=== PATIENT | male | born 1980 | race Caucasian/White ===

== ENCOUNTER 2018-08-12 15:04 | Emergency (ER) | payer BC ==
[~2018-08-12] VITALS: Ht 182.9 cm; Wt 122.9 kg
[~2018-08-12 15:04] MED LIST: BACTRIM DS TAB1 EACH PO; CELEXA 10 MG TA10 M1; ESKALITH300 MG; GLUCOPHAGE500 MG; NORCO 5-325 TA1 EACH PO; SIMVASTATIN10 MG PO
[2018-08-12 15:34] LABS: ABSOLUTE NEUTROPHILS 10.3 thou/uL (1.4-8.2); BASOPHILS 0.5 % (0.0-2.0); EOSINOPHILS 1.6 % (0.0-3.0); HEMATOCRIT 46.4 % (42.0-52.0); HEMOGLOBIN 15.9 gm/dL (14.0-18.0); LYMPHOCYTES 21.5 % (24.0-44.0); MCH 29.8 pg (26.0-34.0); MCHC 34.3 g/dL (28.0-37.0); MCV 86.9 fL (80.0-100.0); MONOCYTES 5.1 % (1.0-8.0); PLATELET COUNT 322 thou/uL (150-400); POLYS 71.3 % (36.0-66.0); RBC 5.34 mil/uL (4.50-6.00); RDW 13.4 % (10.5-14.5); WBC 14.4 thou/uL (4.0-11.0)
[2018-08-12 15:39] LABS: CALCIUM 10.5 mg/dL (8.5-10.1); CREATININE 0.9 mg/dL (0.7-1.3); POTASSIUM 4.1 mmol/L (3.5-5.1)
[2018-08-12] MEDS ORDERED: BACTRIM DS TAB1 EACH PO (16:08)
[2018-08-12 16:48] VITALS: BP 130/91
== END 2018-08-12 16:54 | disposition home or self-care (01) ==
LOC: ER 15:04
PROVIDERS: Student in an Organized Health Care Education/Training Program
DX: L03.031 Cellulitis of right toe (principal); E11.9 Type 2 diabetes mellitus without complications

== ENCOUNTER → 2018-08-31 | Outpatient (CLI) | payer BC | LOC: HYPER 08-25 06:46 | DX: E11.621 Type 2 diabetes mellitus with foot ulcer (principal); L97.512 Non-pressure chronic ulcer of other part of right foot with fat layer exposed; S80.212A Abrasion, left knee, initial encounter; S80.211A Abrasion, right knee, initial encounter; L84 Corns and callosities; E78.5 Hyperlipidemia, unspecified; E66.9 Obesity, unspecified; I10 Essential (primary) hypertension; Z79.84 Long term (current) use of oral hypoglycemic drugs; Z79.4 Long term (current) use of insulin; Z68.36 Body mass index [BMI] 36.0-36.9, adult; X58.XXXA Exposure to other specified factors, initial encounter; Y93.89 Activity, other specified; Y92.89 Other specified places as the place of occurrence of the external cause; Y99.8 Other external cause status ==

== ENCOUNTER → 2018-09-28 | Outpatient (CLI) | payer BC | LOC: HYPER 06:48 | DX: E11.621 Type 2 diabetes mellitus with foot ulcer (principal); L97.512 Non-pressure chronic ulcer of other part of right foot with fat layer exposed; E78.5 Hyperlipidemia, unspecified; I10 Essential (primary) hypertension; L84 Corns and callosities; E66.9 Obesity, unspecified; Z79.84 Long term (current) use of oral hypoglycemic drugs; Z79.4 Long term (current) use of insulin; Z68.36 Body mass index [BMI] 36.0-36.9, adult ==

== ENCOUNTER → 2018-10-19 | Outpatient (CLI) | payer BC | LOC: HYPER 06:41 | DX: E11.621 Type 2 diabetes mellitus with foot ulcer (principal); L97.512 Non-pressure chronic ulcer of other part of right foot with fat layer exposed; E66.9 Obesity, unspecified; E78.5 Hyperlipidemia, unspecified; I10 Essential (primary) hypertension; Z79.84 Long term (current) use of oral hypoglycemic drugs; Z79.4 Long term (current) use of insulin; Z68.36 Body mass index [BMI] 36.0-36.9, adult ==

== ENCOUNTER → 2018-11-13 | Outpatient (CLI) | payer BC | LOC: HYPER 08:27 | DX: E11.621 Type 2 diabetes mellitus with foot ulcer (principal); L97.512 Non-pressure chronic ulcer of other part of right foot with fat layer exposed; L97.511 Non-pressure chronic ulcer of other part of right foot limited to breakdown of skin; E78.5 Hyperlipidemia, unspecified; I10 Essential (primary) hypertension; L84 Corns and callosities; E66.9 Obesity, unspecified; Z79.84 Long term (current) use of oral hypoglycemic drugs; Z79.4 Long term (current) use of insulin; Z68.36 Body mass index [BMI] 36.0-36.9, adult ==

== ENCOUNTER → 2018-11-27 | Outpatient (CLI) | payer BC | LOC: HYPER 08:09 | DX: E11.621 Type 2 diabetes mellitus with foot ulcer (principal); L97.512 Non-pressure chronic ulcer of other part of right foot with fat layer exposed; L97.511 Non-pressure chronic ulcer of other part of right foot limited to breakdown of skin; S41.1 Open wound of upper arm; S81.802D Unspecified open wound, left lower leg, subsequent encounter; S81.801D Unspecified open wound, right lower leg, subsequent encounter; I10 Essential (primary) hypertension; E78.5 Hyperlipidemia, unspecified; E66.9 Obesity, unspecified; L84 Corns and callosities; Z79.84 Long term (current) use of oral hypoglycemic drugs; Z79.4 Long term (current) use of insulin; Z68.36 Body mass index [BMI] 36.0-36.9, adult; X58.XXXD Exposure to other specified factors, subsequent encounter ==

== ENCOUNTER → 2018-12-23 | Outpatient (CLI) | payer BC | LOC: HYPER 06:25 | DX: E11.621 Type 2 diabetes mellitus with foot ulcer (principal); L97.512 Non-pressure chronic ulcer of other part of right foot with fat layer exposed; L97.511 Non-pressure chronic ulcer of other part of right foot limited to breakdown of skin; L84 Corns and callosities; E78.5 Hyperlipidemia, unspecified; E66.9 Obesity, unspecified; I10 Essential (primary) hypertension; Z79.84 Long term (current) use of oral hypoglycemic drugs; Z79.4 Long term (current) use of insulin ==

== ENCOUNTER → 2018-12-25 | Outpatient (CLI) | payer BC | LOC: HYPER 07:03 | DX: E11.621 Type 2 diabetes mellitus with foot ulcer (principal); L97.512 Non-pressure chronic ulcer of other part of right foot with fat layer exposed; I10 Essential (primary) hypertension; E78.5 Hyperlipidemia, unspecified; E66.9 Obesity, unspecified; L84 Corns and callosities; Z68.36 Body mass index [BMI] 36.0-36.9, adult; Z79.84 Long term (current) use of oral hypoglycemic drugs; Z79.4 Long term (current) use of insulin ==

== ENCOUNTER → 2018-12-28 | Outpatient (CLI) | payer BC | LOC: HYPER 08:00 | DX: E11.621 Type 2 diabetes mellitus with foot ulcer (principal); L97.512 Non-pressure chronic ulcer of other part of right foot with fat layer exposed; L97.521 Non-pressure chronic ulcer of other part of left foot limited to breakdown of skin; E78.5 Hyperlipidemia, unspecified; I10 Essential (primary) hypertension; L84 Corns and callosities; E66.9 Obesity, unspecified; Z79.84 Long term (current) use of oral hypoglycemic drugs; Z79.4 Long term (current) use of insulin; Z68.36 Body mass index [BMI] 36.0-36.9, adult ==

== ENCOUNTER → 2019-01-04 | Outpatient (CLI) | payer BC | LOC: HYPER 01-01 11:32 | DX: E11.621 Type 2 diabetes mellitus with foot ulcer (principal); L97.512 Non-pressure chronic ulcer of other part of right foot with fat layer exposed; L97.521 Non-pressure chronic ulcer of other part of left foot limited to breakdown of skin; E78.5 Hyperlipidemia, unspecified; L84 Corns and callosities; I10 Essential (primary) hypertension; E66.9 Obesity, unspecified; Z79.84 Long term (current) use of oral hypoglycemic drugs; Z79.4 Long term (current) use of insulin; Z68.36 Body mass index [BMI] 36.0-36.9, adult ==

== ENCOUNTER → 2019-01-11 | Outpatient (CLI) | payer BC | LOC: HYPER 01-08 07:40 | DX: E11.621 Type 2 diabetes mellitus with foot ulcer (principal); L97.512 Non-pressure chronic ulcer of other part of right foot with fat layer exposed; L97.521 Non-pressure chronic ulcer of other part of left foot limited to breakdown of skin; I10 Essential (primary) hypertension; E78.5 Hyperlipidemia, unspecified; L84 Corns and callosities; E66.9 Obesity, unspecified; Z79.84 Long term (current) use of oral hypoglycemic drugs; Z79.4 Long term (current) use of insulin; Z68.36 Body mass index [BMI] 36.0-36.9, adult ==

== ENCOUNTER → 2019-01-18 | Outpatient (CLI) | payer BC | LOC: HYPER 06:50 | DX: E11.621 Type 2 diabetes mellitus with foot ulcer (principal); L97.512 Non-pressure chronic ulcer of other part of right foot with fat layer exposed; L97.521 Non-pressure chronic ulcer of other part of left foot limited to breakdown of skin; E78.5 Hyperlipidemia, unspecified; E66.9 Obesity, unspecified; I10 Essential (primary) hypertension; L84 Corns and callosities; Z68.36 Body mass index [BMI] 36.0-36.9, adult; Z79.84 Long term (current) use of oral hypoglycemic drugs; Z79.4 Long term (current) use of insulin ==

== ENCOUNTER → 2019-01-25 | Outpatient (CLI) | payer BC | LOC: HYPER 06:54 | DX: E11.621 Type 2 diabetes mellitus with foot ulcer (principal); L97.512 Non-pressure chronic ulcer of other part of right foot with fat layer exposed; L97.521 Non-pressure chronic ulcer of other part of left foot limited to breakdown of skin; I10 Essential (primary) hypertension; E78.5 Hyperlipidemia, unspecified; E66.9 Obesity, unspecified; L84 Corns and callosities; Z68.36 Body mass index [BMI] 36.0-36.9, adult; Z79.84 Long term (current) use of oral hypoglycemic drugs; Z79.4 Long term (current) use of insulin ==

== ENCOUNTER → 2019-02-02 | Outpatient (CLI) | payer BC | LOC: HYPER 02-01 13:12 | DX: E11.621 Type 2 diabetes mellitus with foot ulcer (principal); L97.512 Non-pressure chronic ulcer of other part of right foot with fat layer exposed; L97.521 Non-pressure chronic ulcer of other part of left foot limited to breakdown of skin; E78.5 Hyperlipidemia, unspecified; L84 Corns and callosities; I10 Essential (primary) hypertension; E66.9 Obesity, unspecified; Z79.84 Long term (current) use of oral hypoglycemic drugs; Z79.4 Long term (current) use of insulin; Z68.36 Body mass index [BMI] 36.0-36.9, adult ==

== ENCOUNTER → 2019-02-11 | Outpatient (CLI) | payer BC | LOC: HYPER 02-08 15:44 | DX: E11.621 Type 2 diabetes mellitus with foot ulcer (principal); L97.512 Non-pressure chronic ulcer of other part of right foot with fat layer exposed; L97.521 Non-pressure chronic ulcer of other part of left foot limited to breakdown of skin; E78.5 Hyperlipidemia, unspecified; I10 Essential (primary) hypertension; L84 Corns and callosities; E66.9 Obesity, unspecified; Z79.84 Long term (current) use of oral hypoglycemic drugs; Z79.4 Long term (current) use of insulin; Z68.36 Body mass index [BMI] 36.0-36.9, adult ==

== ENCOUNTER → 2019-02-25 | Outpatient (CLI) | payer BC | LOC: HYPER 06:45 | DX: E11.621 Type 2 diabetes mellitus with foot ulcer (principal); L97.512 Non-pressure chronic ulcer of other part of right foot with fat layer exposed; L97.521 Non-pressure chronic ulcer of other part of left foot limited to breakdown of skin; E78.5 Hyperlipidemia, unspecified; I10 Essential (primary) hypertension; E66.9 Obesity, unspecified; L84 Corns and callosities; Z79.84 Long term (current) use of oral hypoglycemic drugs; Z79.4 Long term (current) use of insulin; Z68.36 Body mass index [BMI] 36.0-36.9, adult ==

== ENCOUNTER 2019-03-07 21:12 | Inpatient (IN) | payer BC ==
[~2019-03-07] VITALS: Ht 182.9 cm; Wt 131.5 kg
[~2019-03-07 21:12] MED LIST changes: -ESKALITH300 MG; +ESKALITH300 MG PO
[2019-03-07 21:16] VITALS: BP 170/87
[2019-03-07] MEDS ORDERED: VENLAFAXINE HC150 M1 PO ×2 (21:39)
[2019-03-07] MEDS ORDERED: PRINIVIL20 MG PO ×2 (21:39)
[2019-03-07] MEDS ORDERED: PENICILLIN V P500 MG PO ×2 (21:39)
[2019-03-07] MEDS ORDERED: GLUCOPHAGE XR750 MG PO ×2 (21:40)
[2019-03-07] MEDS ORDERED: LIPITOR10 MG PO ×2 (21:41)
[2019-03-07] MEDS ORDERED: CLEOCIN HCL300 MG PO ×2 (21:44)
[2019-03-07] MEDS ORDERED: WELLBUTRIN XL150 MG PO (21:44)
[2019-03-07 21:53] LABS: ABSOLUTE NEUTROPHILS 10.7 thou/uL (1.4-8.2); BASOPHILS 0.2 % (0.0-2.0); EOSINOPHILS 1.1 % (0.0-3.0); HEMATOCRIT 30.4 % (42.0-52.0); HEMOGLOBIN 10.5 gm/dL (14.0-18.0); LYMPHOCYTES 14.1 % (24.0-44.0); MCH 30.1 pg (26.0-34.0); MCHC 34.7 g/dL (28.0-37.0); MCV 86.7 fL (80.0-100.0); MONOCYTES 4.8 % (1.0-8.0); PLATELET COUNT 279 thou/uL (150-400); POLYS 79.8 % (36.0-66.0); RBC 3.51 mil/uL (4.50-6.00); RDW 13.8 % (10.5-14.5); WBC 13.4 thou/uL (4.0-11.0)
[2019-03-07 21:59] LABS: ANION GAP 9 mmol/L (7-16); BUN 7 mg/dL (7-18); CALCIUM 8.5 mg/dL (8.5-10.1); CHLORIDE 99 mmol/L (98-107); CO2 26 mmol/L (21-32); GLUCOSE 252 mg/dL (74-106); POTASSIUM 3.4 mmol/L (3.5-5.1); SODIUM 134 mmol/L (136-145)
[2019-03-07 22:06] LABS: APTT 32.2 Seconds (24.5-32.8); INR 1.1; PROTIME 11.1 Seconds (9.3-11.4)
[2019-03-07 22:08] LABS: ALBUMIN 2.7 g/dL (3.4-5.0); MAGNESIUM 2.1 mg/dL (1.8-2.4); SGOT 19 U/L (15-37); SGPT 26 U/L (30-65); TOTAL BILIRUBIN 0.5 mg/dL (<0.1-1.0); TOTAL PROTEIN 7.5 g/dL (6.4-8.2); TROPONIN-I <0.06 ng/mL (<0.06)
[2019-03-07 22:50] LABS: BE(vivo) -1.7 mmol/L (-2 to +3); HCO3 21.5 mmol/L (22.0-26.0); PCO2 31.4 mmHg (35.0-45.0); PO2 70.3 mmHg (80.0-100.0); pH 7.454 (7.360-7.450); sO2 95.1 % (92.0-98.0)
[2019-03-07] MEDS ORDERED: HUMALOG100 UNIT/1 ×2 (22:52)
[2019-03-07] MEDS ORDERED: TRULICITY1.5 MG/0.5 SUBQ ×2 (22:53)
[2019-03-07] MEDS ORDERED: LEVEMIR100 UNIT/1 SUBQ ×2 (22:54)
[2019-03-07 23:39] VITALS: BP 133/75
[2019-03-07 23:44] LABS: URINE BILIRUBIN NEGATIVE (Negative); URINE BLOOD NEGATIVE (Negative); URINE CLARITY CLEAR; URINE COLOR YELLOW; URINE GLUCOSE-RANDOM* TRACE (Negative); URINE KETONES NEGATIVE (Negative); URINE LEUKOCYTES-REFLEX TRACE (Negative); URINE NITRITE-REFLEX NEGATIVE (Negative); URINE PROTEIN (DIPSTICK) NEGATIVE (Negative); URINE SPECIFIC GRAVITY <= 1.005 (1.005-1.035); URINE UROBILINOGEN 0.2 E.U./dl (0.2-1.0)
[2019-03-07 23:57] VITALS: BP 148/80
[2019-03-08] MEDS ORDERED: ASPIR 8181 MG PO ×2 (01:21)
[2019-03-08] MEDS ORDERED: MULTILIQ120 PO ×2 (01:22)
[2019-03-08] MEDS ORDERED: MUCINEX600 MG PO ×2 (01:23)
--- NOTE | 2019-03-08 04:37 | NUR ---
PT. ARRIVED AROUND 2340; PT. AOX4; ABLE TO AMBULATE FROM STRETCHER TO BED; SOB WITH EXERTION; C/O PAIN OVER CHEST AREA; 08/23; REFUSED PRN PAIN MEDICATION; ADMISSION PERFORMED; SAT 88% ON RA; EDUCATED ABOUT USING O2 WHILE SLEEPING; ST. UNDERSTANDING; NO ELEVATED TEMPERATURE AT ARRIVAL; SYNUS RYRAKESHM ON MONITOR; VS; MONITORING; MEDICATION RECONCILIATION PERFORMED; PICTURES TAKEN; CHECK CHART; ABLE TO REST AFTER 0100; MONITORING; ASSESSMENT CHART; FOLLOWING POC; WILL PASS ON REPORT.
[2019-03-08 04:58] VITALS: BP 128/66
[2019-03-08 07:19] VITALS: BP 137/80
--- NOTE | 2019-03-08 08:44 | EKG ---
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
--- NOTE | 2019-03-08 10:25 | 2DMMODE ---
[facility] [place] [address] 2 D/M-MODE ECHOCARDIOGRAM Name: LAURA MEMBRENO Room #: 211-P [facility] IN [facility]#: [id number] Admission: 03/07/19 Attend Phys: Bertha Cosme, Discharge: Date of : 76 Report #: [id number] THIS REPORT FOR: //name// APPROVED REPORT Study performed: 03/08/2019 09:25:52 EXAM: Comprehensive 2D, Doppler, and color-flow Echocardiogram Patient Location: Echo lab Status: routine BSA: 2.55 HR: 94 bpm BP: 137/80 mmHg Rhythm: NSR Other Information Study Quality: Adequate Indications Diabetes Dyspnea Hypertension/HDD Echo Enhancing Agent Indication: Endocardial border delineation Agent(s) / Amount(s) Used: Optison 3 cc 2D Dimensions RVDd: 41.32 mm IVSd: 13.38 (7-11mm) LVOT Diam: 23.14 (18-24mm) LVDd: 47.04 mm PWd: 13.05 (7-11mm) Ascending Ao: 35.57 (22-36mm) LVDs: 33.53 (25-40mm) Aortic Root: 29.34 mm IVC: 12.00 mm Volumes Left Atrial Volume (Systole) Single Plane 4CH: 87.05 mL Single Plane 2CH: 65.13 mL LA ESV Index: 37.00 mL/m2 Aortic Valve AoV Peak Errol.: 1.29 m/s AO Peak Gr.: 6.70 mmHg LVOT Max P.25 mmHg LVOT Max V: 1.25 m/s [facility] [address] [place] [address] 2 D/M-MODE ECHOCARDIOGRAM Name: LAURA MEMBRENO Room #: 211-P [facility]#: [id number] Admission: 03/07/19 Attend Phys: Bertha Cosme, Discharge: Date of : 76 Report #: [id number] [id number] Vmax: 4.06 cm2 Mitral Valve E/A Ratio: 1.5 MV Decel. Time: 145.90 ms MV E Max Errol.: 1.30 m/s MV A Errol.: 0.85 m/s MV PHT: 42.31 ms IVRT: 55.36 ms Pulmonary Valve PV Peak Errol.: 1.23 m/s PV Peak Gr.: 6.05 mmHg Pulmonary Vein P Vein S: 0.77 m/s P Vein A: 0.38 m/s P Vein D: 0.64 m/s P Vein A Dur.: 76.1 msec P Vein S/D Ratio: 1.20 Left Ventricle The left ventricle is normal size. There is normal LV segmental wall motion. Mild concentric left ventricular hypertrophy. The left ventricular systolic function is normal. The left ventricular ejection fraction is within the normal range. LVEF is 55-60%. The left ventricular diastolic function is normal. Right Ventricle The right ventricle is normal size. The right ventricular systolic function is normal. Atria Left atrium is mildly dilated. Right atrium is at the upper limits of normal. Aortic Valve The aortic valve is normal in structure. No aortic regurgitation is present. There is no aortic valvular stenosis. Mitral Valve The mitral valve is normal in structure. There is no mitral valve regurgitation noted. No evidence of mitral valve stenosis. Tricuspid Valve The tricuspid valve is normal in structure. There is no tricuspid valve regurgitation noted. Pulmonic Valve [facility] [address] [place] [address] 2 D/M-MODE ECHOCARDIOGRAM Name: LAURA MEMBRENO Ryan Room #: 211-P [facility].#: [id number] Admission: 03/07/19 Attend Phys: Bertha Cosme, Discharge: Date of : 76 Report #: [id number] The pulmonary valve is normal in structure. There is no pulmonic valvular regurgitation. Great Vessels The aortic root is normal in size. IVC is normal in size and collapses >50% with inspiration. Pericardium There is no pericardial effusion. <Conclusion> The left ventricle is normal size. Mild concentric left ventricular hypertrophy. The left ventricular systolic function is normal. The right ventricle is normal size. Left atrium is dilated. Left atrium is mildly dilated. The aortic valve is normal in structure. There is no mitral valve regurgitation noted. There is no tricuspid valve regurgitation noted. <ELECTRONICALLY SIGNED> By: Christiano Dockery MD 03/08/19 1025 1025 1025 Christiano Dockery MD /INF
[2019-03-08 11:34] VITALS: BP 147/79
[2019-03-08 15:43] VITALS: BP 136/73
--- NOTE | 2019-03-08 17:16 | NUR ---
ASSUMED CARE AT SHIFT CHANGE, ALERT AND ORIENTED X4. C/O HEADACHE AND MEDICATED INDICATED. LOW GRADE FEVER AT 100.3, AND OTHER VSS.SR ON THE MONITOR. PROGRESSING TOWARDS GOALS AND WILL CONTINU WITH POC.
[2019-03-08 20:30] VITALS: BP 142/76
--- NOTE | 2019-03-09 03:46 | NUR ---
ASSESSMENT DOCUMENTED.PT BEEN RESTING IN NO ACUTE DISTRESS.A/OX4.VSS.ON O2 AT 3LITERS PNC,NO RESP DISTRESS.TOLERATED SHOWER.CONTINUES WITH ABT THERAPY,PHARMACIST ADJUSTED VANCOMYCIN D/T TROUGH BEING LOW AT 11.VANCO ADMINISTERED,TOLERATED.WOUND TREATMENT TO RIGHT BIG TOE AND THE 4 TH LEFT TOE COMPLETED PER ORDERS.TOLERATED.PT DENIES ANY NEEDS AT THIS TIME. WILL CONT TO MONITOR PER POC
[2019-03-09 05:27] LABS: HEMATOCRIT 29.3 % (42.0-52.0); HEMOGLOBIN 9.7 gm/dL (14.0-18.0); MCH 29.4 pg (26.0-34.0); MCHC 33.3 g/dL (28.0-37.0); MCV 88.4 fL (80.0-100.0); RBC 3.31 mil/uL (4.50-6.00); RDW 13.8 % (10.5-14.5); WBC 11.6 thou/uL (4.0-11.0)
[2019-03-09 05:43] LABS: CALCIUM 8.4 mg/dL (8.5-10.1); CREATININE 0.9 mg/dL (0.7-1.3); MAGNESIUM 2.3 mg/dL (1.8-2.4); PHOSPHORUS 4.1 mg/dL (2.5-4.9); POTASSIUM 3.4 mmol/L (3.5-5.1)
[2019-03-09 06:12] VITALS: BP 145/86
[2019-03-09 08:00] VITALS: BP 135/79
--- NOTE | 2019-03-09 08:09 | NUR ---
ASSUMED CARE OF PT APPROX 0715, A&0X4, DR. KELLEY WAS SPEAKING TO PT RE: HIGH BG AND ASKED NURSING TO INCREASE HIS INSULIN PER HOME DOSE. HE HAD A LIST WILL CALL PHARMACY TO ASK FOR THAT ORDER AND ENTER IT APPROPRIATE WHEN GIVEN THE OPPORTUNITY. WOUNDS BLE, WILL ADDRESS W/DRESSING CHANGES, IVF RUNNING WELL 02 AT 2L, DOES NOT WEAR AT HOME. ENCOURAGED PT TO DO DEEP SLOW BREATHING. HAVING SNACK THIS A.M. BEFORE BREAKFAST, CARDIAC MONITORED, SEE SEPARATE INTERVENTIONS FOR ASSESSMENTS. WILL CONTINUE TO MONITOR AND ENCOURAGED PT TO USE CALL LIGHT FOR ANY NEEDS
[2019-03-09] MEDS ORDERED: WELLBUTRIN SR150 MG PO ×2 (10:02)
[2019-03-09 11:23] VITALS: BP 153/77
[2019-03-09 16:30] VITALS: BP 156/78
--- NOTE | 2019-03-09 16:54 | HC ---
[facility] [place] [address] CONSULTATION Name: LAURA MEMBRENO Room #: 211-P [facility] IN ..#: [id number] Admission: 03/07/19 Attend Phys: Bertha Cosme MD Discharge: Date of : 76 Report #: [id number] THIS REPORT FOR: //name// CC: Bertha Vickers DATE OF SERVICE: 03/08/2019 CHIEF COMPLAINT: Ulceration to the right great toe. HISTORY OF PRESENT ILLNESS: This is a 38-year-old male patient with whom I am familiar from outpatient wound care evaluations. 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 The wound was nearly closed around 02/02/2019 and has been doing well. 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 He did, however, develop a sudden onset of cellulitis to the right great toe and was admitted at [facility] approximately 3-4 days ago. He received IV antibiotics with improvement and went home and returned to the Emergency Department here last night with increasing shortness of breath. I have been asked to see him with regard to his toe. PAST MEDICAL HISTORY: Positive for history of diabetes mellitus, poorly controlled; peripheral neuropathy with neuropathic ulceration involving his right great toe and left fourth toe. SOCIAL HISTORY: Negative for current alcohol or tobacco use. 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 FAMILY HISTORY: Positive for heart disease in his father, cervical cancer in his mother as well as diabetes in his mother. MEDICATIONS: Include aspirin, Thera-Plus, Mucinex, Eskalith, venlafaxine, penicillin VK, Prinivil, Glucophage, Lipitor, Wellbutrin, Cleocin, Humalog, Trulicity and Levemir. ALLERGIES: No known drug allergies. REVIEW OF SYSTEMS: CONSTITUTIONAL: The patient denies fever, chills or weight loss. NEUROLOGICAL: The patient denies focal weakness. Does have peripheral neuropathy. ENT: The patient denies earache, nasal drainage or sore throat. CARDIOVASCULAR: The patient denies chest pain or palpitations or diaphoresis. PULMONARY: The patient does complain of shortness of breath, some dyspnea with exertion and cough with small amounts of sputum production. GASTROINTESTINAL: The patient denies nausea, vomiting, diarrhea or abdominal [address] [address] CONSULTATION Name: LAURA MEMBRENO Ryan Room #: 211-P [facility] IN ..#: [id number] Admission: 03/07/19 Attend Phys: Bertha Cosme MD Discharge: Date of : 76 Report #: [id number] pain. ORTHOPEDIC: The patient does note the ulceration on his right great toe and left fourth toe. Other systems in a 14-point review of systems are negative. PHYSICAL EXAMINATION: VITAL SIGNS: At this time include temperature 38.1, pulse 91, respiratory rate 18, blood pressure 147/79. GENERAL: This is a chronically ill-appearing male patient who appears to be in mild discomfort. HEENT: Head normocephalic. Nose and throat clear. NECK: Supple. LUNGS: Diminished. HEART: Regular rate and rhythm. ABDOMEN: Bowel sounds present, obese, soft, nontender. EXTREMITIES: Examination of the lower extremities demonstrates palpable distal pulses. He has slight erythema involving the right great toe. He has scattered small ulcerations on the plantar surface, although overall he is mostly epithelialized and this is a significant improvement since the last time I saw him as an outpatient. He has also some dry areas of crusted skin on his left fourth toe, once again a few small punctate areas of ulceration, but mostly also closed. Neither area appears to be overtly infected. NEUROLOGIC: The patient is alert and oriented and appropriate. He has diminished light touch sensation on his lower extremities. LABORATORY DATA: Include white blood cell count 13.4 with a hemoglobin 10.5, hematocrit of 30.4, platelet count is 279,000. Sodium 134, potassium 3.4, chloride 99, CO2 of 26, BUN 7, creatinine 1.0, glucose is quite elevated at 252, calcium is 8.5, magnesium 2.1, total bilirubin 0.5, total protein 7.5, albumin is 2.7. CLINICAL IMPRESSION: 1. 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 2. Diabetes mellitus with hyperglycemia, poorly controlled. 3. Morbid obesity. 4. Respiratory illness with hypoxia. 5. Moderate protein-calorie malnutrition. RECOMMENDATIONS: At this point in time, we will recommend simple topical care with topical gentamicin ointment to the toes with Xeroform and dry gauze secondary dressing to be changed once daily. Recommend limited ambulation at least while here in the hospital. I do not believe additional studies such as vascular studies or radiological studies are required at this time as I do not suspect underlying osteomyelitis. He will need ongoing nutritional support to [facility] [address] [place] [address] CONSULTATION Name: LAURA MEMBRENO Room #: 376-P ADM IN M.R.#: [id number] Admission: 03/07/19 Attend Phys: Bertha Cosme MD Discharge: Date of : 76 Report #: [id number] maximize glycemic control and wound healing. I appreciate being asked to see him in consultation. <ELECTRONICALLY SIGNED> By: Codey Mckeon MD 03/09/19 1654 1441 0023 Codey Mckeon MD /nt
[2019-03-09 19:12] VITALS: BP 140/80
[2019-03-10 03:11] VITALS: BP 158/78
--- NOTE | 2019-03-10 04:56 | NUR ---
ASSESSMENT DOCUMENTED.PT BEEN UP MOST OF THE NOC SITTING UP IN THE CHAIR WORKING ON HER LAPTOP.A/OX4.VSS.REMAINS ON O2 AT 2LITERS PNC,SATS 92% MOST OF THE TIME.NEB TX PER RT.ABT INFUSED PER ORDERS.DENIES PAIN OR NAY DISTRESS.TX TO WOUND PER ORDERS.POC IS TO CONT WITH CURRENT TX.
[2019-03-10 05:09] LABS: HEMATOCRIT 31.1 % (42.0-52.0); HEMOGLOBIN 10.4 gm/dL (14.0-18.0); MCH 29.2 pg (26.0-34.0); MCHC 33.3 g/dL (28.0-37.0); MCV 87.8 fL (80.0-100.0); RBC 3.55 mil/uL (4.50-6.00); WBC 10.8 thou/uL (4.0-11.0)
[2019-03-10 05:16] LABS: CALCIUM 8.9 mg/dL (8.5-10.1); CREATININE 0.9 mg/dL (0.7-1.3); MAGNESIUM 1.9 mg/dL (1.8-2.4); PHOSPHORUS 4.3 mg/dL (2.5-4.9); POTASSIUM 3.8 mmol/L (3.5-5.1)
[2019-03-10 07:52] VITALS: BP 149/82
--- NOTE | 2019-03-10 09:52 | NUR ---
Assess due to pt with extreme class III obesity, BMI of 41.4. Admit with pneumonia. Also with diabetic foot wounds. Eating 100% of meals. BG elevated 177-278 and pt requires insulin therapy and metformin. Pt voices his A1C level has improved from 14 to 8 over past 6 mo, sees and endocronologist. Discussed basics of carb controlled diet. Eating high protein foods. Low nutrition risk
--- NOTE | 2019-03-10 10:29 | NUR ---
met with patient he admits with cellulitis. 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 patient cont on on oxygen which he does not wear at home. he is has flight of steps in home to second floor were bedroom and bathroom are located. No hx of DME. Discussed HH care and patient agreeable if needed. Casemgt following
[2019-03-10 12:04] VITALS: BP 144/72
--- NOTE | 2019-03-10 15:56 | NUR ---
ASSUMED CARE AT SHIFT CHANGE, ALERT AND ORIENTED X4. VSS AND BG WNL. SR ON THE MONITOR. DRESSINT TO [place]UGUSTA WAS DONE BY WOUND CARE MARJORIE, AND WOUNDS ARE OPEN TO AIR. PROGRESSING TOWARDS GOALS AND WILL CONTINUE WITH POC. PLAN DISCHARGE HOME TOMORROW.
[2019-03-10 16:20] VITALS: BP 157/74
[2019-03-10 19:26] VITALS: BP 160/73
--- NOTE | 2019-03-10 22:54 | NUR ---
ASSUMED PT CARE AT 1900 WITH NO SIGN OF DISTRESS NOTED. PT IS ALERT AND ORIENTED. PT IS LAYING DOWN IN BED. ASSESSMENT COMPLETED AND CHARTED. SCHEDULED MEDS ADMINISTERED TO PT. PT IS SITTING IN CHAIR. NO SIGN OF DISTRESS NOTED. REPORT GIVEN TO ONCOMING NURSE. DENIES ANY FURTHER NEEDS AT THIS TIME.
[2019-03-11 05:28] VITALS: BP 154/81
[2019-03-11 05:47] LABS: HEMATOCRIT 32.1 % (42.0-52.0); HEMOGLOBIN 10.5 gm/dL (14.0-18.0); MCH 28.7 pg (26.0-34.0); MCHC 32.6 g/dL (28.0-37.0); MCV 88.1 fL (80.0-100.0); RBC 3.65 mil/uL (4.50-6.00); RDW 14.2 % (10.5-14.5); WBC 11.4 thou/uL (4.0-11.0)
[2019-03-11 06:06] LABS: CALCIUM 9.1 mg/dL (8.5-10.1); CREATININE 0.9 mg/dL (0.7-1.3); POTASSIUM 4.3 mmol/L (3.5-5.1)
[2019-03-11 08:21] VITALS: BP 152/87
[2019-03-11 11:50] VITALS: BP 147/94
[2019-03-11 12:42] LABS: URIC ACID* 2.7 mg/dL (2.6-7.2)
[2019-03-11 17:05] VITALS: BP 156/87
--- NOTE | 2019-03-11 18:41 | NUR ---
[facility] ASSESMENT DOCUMENTED, AND VSS. SR ON THE MONITOR. DRESSING CHANGED PER WOUND CARE TEAM. MEDICATED FOR HEADACHE, AMD PATIENT IS PROGRESSING TOWARDS GOALS. AND WILL CONTINUE WITH POC.
[2019-03-11 19:45] VITALS: BP 152/97
[2019-03-12 04:45] VITALS: BP 149/83
--- NOTE | 2019-03-12 05:17 | NUR ---
ASSUMED PT CARE AT 1900 WITH NO SIGN OF DISTRESS NOTED, PT IS ALERT AND ORIENTED. ASSESSMENT COMPLETED AND CHARTED. SCHEDULED MEDS ADMINISTERED TO PT. PT DENIES ANY PAIN. NO FURTHER NEEDS AT THIS TIME. CONTINUE TO MONITOR PATIENT'S NEEDS .
[2019-03-12 07:55] VITALS: BP 145/89
--- NOTE | 2019-03-12 08:18 | NUR ---
ASSUMED CARE OF PT APPROX 0715, SITTING AT EDGE OF BED, A70X4, AMB STEADY, IVF RUNNING, CARDIAC MONITORED, HAVING SNACK W/A.M. MEDS AND INSULIN, LUNGS DIM, ENCOURAGED HIM TO AMB IN ROOM AND WE'D WALK IN HALLS LATER IN AFTERNOON. ALSO ENC W/DEEP SLOW LONG BREATHING/EXHALATIONS. WILL CONTINUE TO MONITOR. ENCOURAGED HIM TO CALL FOR ANY NEEDS
[2019-03-12 11:50] VITALS: BP 151/93
[2019-03-12 15:10] VITALS: BP 155/96
[2019-03-12 19:32] VITALS: BP 158/82
[2019-03-13 04:27] VITALS: BP 157/75
--- NOTE | 2019-03-13 05:39 | NUR ---
ASSESSMENTS CHARTED, MEDS CHARTED. PATIENT INDEPENDENT IN ROOM DURING SHIFT. PATIENT REFUSED HS INSULIN EXCEPT 20 OF LANTUS. C/O LEG CRAMP DURING NIGHT. PLAN OF CARE IS TO BE SEEN BY [facility] FOR ANY NEW TREATMENTS NEEDED, IF NOT PATIENT MAY GO HOME TODAY.
--- NOTE | 2019-03-13 07:32 | NUR ---
TOOK OVER CARE OF PT FOR DAY SHIFT. A&0X4, IN THE MIDST OF BREATHING TX, RESTLESS MORE THAN USUAL, DENIES ANY NEEDS AT THIS TIME, IV ABX, WEIGHT, WILL DO ANOTHER STANDING WT LATER IN SHIFT. PT AWARE OF NEED FOR SPUTUM, ALL SUPPLIES AT BEDSIDE. BG CHECKS, CARDIAC MONITORED, OFF OF 02 NOW, DOES NOT WEAR 02 AT HOME. ENCOURAGED HIM TO USE CALL LIGHT FOR ANY NEEDS. PT'S BG/INSULIN SCALE IS OUT OF THE ORDINARY.SEE SEPARATE INTERVENTIONS FOR ASSESSMENTS.
[2019-03-13 07:50] VITALS: BP 144/79
[2019-03-13 11:35] VITALS: BP 140/84
[2019-03-13] MEDS ORDERED: VENTOLIN HFA 1818 GM INH ×2 (12:40)
[2019-03-13] MEDS ORDERED: CEFDINIR300 MG PO ×2 (12:40)
[2019-03-13 13:09] VITALS: BP 140/84
[2019-03-13 13:20] VITALS: BP 140/84
--- NOTE | 2019-03-13 14:54 | NUR ---
PT DISCHARGED W/RX, PERMISSION SLIP TO RETURN TO WORK, ALL PAPERWORK SIGNED, TELE AND IV REMOVED, ACCOMPANIED BY STAFF IN W/C WITH SPOUSE ALONG.
[2019-03-13 15:09] LABS: HEMOGLOBIN 11.2 g/dL (13.0-17.7)
[2019-03-15 22:10] LABS: ADENOVIRUS Negative (Negative); INFLUENZA A Negative (Negative); INFLUENZA B Negative (Negative); METAPNEUMOVIRUS Negative (Negative); PARAINFLUENZA 1 Negative (Negative); PARAINFLUENZA 2 Negative (Negative); PARAINFLUENZA 3 Negative (Negative); RHINOVIRUS Negative (Negative); RSV A Negative (Negative); RSV B Negative (Negative)
--- NOTE | 2019-04-15 19:00 | HC ---
[facility] [place] [address] CONSULTATION Name: LAURA MEMBRENO Room #: 207-P [facility] IN ..#: [id number] Admission: 03/07/19 Attend Phys: Bertha Cosme MD Discharge: 03/13/19 Date of : 76 Report #: [id number] THIS REPORT FOR: //name// CC: Bertha Vickers DATE OF SERVICE: 03/12/2019 INFECTIOUS DISEASE CONSULTATION REASON FOR CONSULTATION: I was asked to evaluate concerning bilateral pulmonary infiltrates. HISTORY OF PRESENT ILLNESS: The patient is a 38-year-old diabetic who was hospitalized on 03/07/2019 with shortness of breath. He had low-grade fever noted, mild chills without sweats. A week before this, he was hospitalized at [facility] with a right great toe diabetic foot wound infection, placed on IV antibiotic therapy, dismissed on oral therapy. While he was there, he was diagnosed with pneumonia. He could not give me any further details regarding this. He has had no pleuritic chest pain. He has had intermittent cough with light colored secretions produced. No hemoptysis. He has had no sinus congestion or discharge. No oral lesions. No recent dental work. He has had no aspiration episodes. He stated that he checked his heart with an echocardiogram noting it was unremarkable. He has had no travel. 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 On the day of admission, he had some nausea and vomiting, marked dyspnea, unable to walk across the room or up a flight of stairs. No headache currently. He had mild headache prior to his admission. On date of admission, he had temperature of 102 degrees. He was placed on 3 liters of oxygen per nasal cannula. Chest x-ray showed bilateral infiltrates. Cultures so far negative. He was placed on vancomycin and Zosyn. Over the subsequent 5 days, his oxygen requirements have decreased. He is able to walk with less discomfort; although, when he tries to walk in the halls, he gets short of breath. Echocardiogram here showed normal EF. REVIEW OF SYSTEMS: Ten-point review was negative, other than what is described above. ALLERGIES: None known. MEDICATIONS: His medications prior to his admission included aspirin, Mucinex, lithium, venlafaxine, penicillin, clindamycin, metformin, atorvastatin, Wellbutrin, insulin, Trulicity. Now on vancomycin and Zosyn. PAST MEDICAL HISTORY: Diabetes, diabetic foot ulcer, bipolar disorder, peripheral neuropathy, left shoulder arthroscopic repair, hyperlipidemia, hypertension, vasectomy, variceal repair, [place] [address] CONSULTATION Name: LAURA MEMBRENO Room #: 207-P [facility]#: [id number] Admission: 03/07/19 Attend Phys: Bertha Cosme MD Discharge: 03/13/19 Date of : 76 Report #: [id number] FAMILY HISTORY: Noncontributory. SOCIAL HISTORY: Nonsmoker, no significant alcohol intake. PHYSICAL EXAMINATION: VITAL SIGNS: He is afebrile and hemodynamically stable, sitting up in his chair, in no acute distress. He is off oxygen. SKIN: Without rash or decubitus. No palpable adenopathy. He was moderately obese. HEENT: Eyes, without scleral icterus. Mouth, without mucositis. NECK: Supple. LUNGS: Few crackles heard in the bases bilaterally without consolidation. HEART: Regular, without murmur, gallop or rub. ABDOMEN: Soft and nontender with no hepatosplenomegaly or mass. GENITOURINARY: External genitalia without lesion. RECTAL: Not performed. EXTREMITIES: Without clubbing, cyanosis or edema. His right great toe had some skin breakdown with no gross ulceration. There is no drainage or cellulitis. Sensation was diminished in his toes. NEUROLOGIC: Cranial nerves intact. Strength in the upper and lower extremities was normal. LABORATORY STUDIES: Chest x-ray with improved aeration and bilateral pulmonary infiltrates and mild perihilar edema. V/Q scan with low probability PE. Blood cultures are negative to date. Sodium 139, potassium 4.3, bicarbonate 27, creatinine 0.9. Liver function tests normal. LDH 397. BNP 735. INR 1.1. Hemoglobin 10.5, WBC 11.4, platelet count 367,000. Differential was unremarkable. Sedimentation rate 77. MRSA screen negative. Influenza antigen negative. Viral respiratory panel pending. Urinalysis unremarkable. IMPRESSION: A 38-year-old with bilateral pulmonary infiltrates, appear more consistent with congestive heart failure, although his BNP was only 700 and his echocardiogram showed a normal EF. He did receive one dose of Lasix throughout his stay. Other atypical pneumonias including viral or typical bacteria. Other cause for his fever could be his right great toe. RECOMMENDATIONS: We will continue his antibiotic coverage with azithromycin and ceftriaxone. MRSA screen was negative and I do not see much risk for pseudomonas. We will continue wound care to his right great toe. We will await viral respiratory panel and also check urine antigens for legionella, strep [address] [address] CONSULTATION Name: LAURA MEMBRENO Ryan Room #: 207-P [facility] IN M.R.#: [id number] Admission: 03/07/19 Attend Phys: Bertha Cosme MD Discharge: 03/13/19 Date of : 76 Report #: [id number] pneumo. We would attempt further diuresis to see if we can get the infiltrates to clear on that account. <ELECTRONICALLY SIGNED> By: Aristeo Acharya MD 04/15/19 1900 1528 0158 Aristeo Acharya MD /nt
== END 2019-03-13 16:44 | disposition home or self-care (01) | DRG 177 ==
LOC: ER 21:12 → 2N 23:06 → EROBS 23:06 → 2N 23:42
PROVIDERS: Emergency Medicine; Internal Medicine; ADMIT Internal Medicine
DX: J15.6 Pneumonia due to other Gram-negative bacteria (principal); J96.01 Acute respiratory failure with hypoxia; E44.0 Moderate protein-calorie malnutrition; L03.115 Cellulitis of right lower limb; E66.01 Morbid (severe) obesity due to excess calories; E78.5 Hyperlipidemia, unspecified; I10 Essential (primary) hypertension; F31.9 Bipolar disorder, unspecified; G47.33 Obstructive sleep apnea (adult) (pediatric); E11.621 Type 2 diabetes mellitus with foot ulcer; E11.42 Type 2 diabetes mellitus with diabetic polyneuropathy; D64.9 Anemia, unspecified; E87.6 Hypokalemia; E88.09 Other disorders of plasma-protein metabolism, not elsewhere classified; E11.65 Type 2 diabetes mellitus with hyperglycemia; Z79.84 Long term (current) use of oral hypoglycemic drugs; Z79.82 Long term (current) use of aspirin; Z82.49 Family history of ischemic heart disease and other diseases of the circulatory system; Z80.8 Family history of malignant neoplasm of other organs or systems; Z83.3 Family history of diabetes mellitus; Z68.39 Body mass index [BMI] 39.0-39.9, adult; Z98.52 Vasectomy status
CPT/HCPCS: 10081

== ENCOUNTER → 2019-04-02 | Outpatient (CLI) | payer BC ==
[~2019-04-02] MED LIST changes: +ASPIR 8181 MG PO; +CEFDINIR300 MG PO; +CLEOCIN HCL300 MG PO; +GLUCOPHAGE XR750 MG PO; +HUMALOG100 UNIT/1; +LEVEMIR100 UNIT/1 SUBQ; +LIPITOR10 MG PO; +MUCINEX600 MG PO; +MULTILIQ120 PO; +PENICILLIN V P500 MG PO; +PRINIVIL20 MG PO; +TRULICITY1.5 MG/0.5 SUBQ; +VENLAFAXINE HC150 M1 PO; +VENTOLIN HFA 1818 GM INH; +WELLBUTRIN SR150 MG PO; +WELLBUTRIN XL150 MG PO
== END ==
LOC: RAD 16:22
DX: Z09 Encounter for follow-up examination after completed treatment for conditions other than malignant neoplasm (principal); J98.4 Other disorders of lung

== ENCOUNTER → 2019-04-02 | Outpatient (CLI) | payer BC | LOC: HYPER 06:16 | DX: E11.621 Type 2 diabetes mellitus with foot ulcer (principal); L97.512 Non-pressure chronic ulcer of other part of right foot with fat layer exposed; L97.521 Non-pressure chronic ulcer of other part of left foot limited to breakdown of skin; L84 Corns and callosities; E78.5 Hyperlipidemia, unspecified; E66.9 Obesity, unspecified; I10 Essential (primary) hypertension; Z79.84 Long term (current) use of oral hypoglycemic drugs; Z79.4 Long term (current) use of insulin; Z68.36 Body mass index [BMI] 36.0-36.9, adult ==

== ENCOUNTER → 2019-04-21 | Outpatient (CLI) | payer BC | LOC: HYPER 07:58 | DX: E11.621 Type 2 diabetes mellitus with foot ulcer (principal); L97.512 Non-pressure chronic ulcer of other part of right foot with fat layer exposed; L97.521 Non-pressure chronic ulcer of other part of left foot limited to breakdown of skin; E78.5 Hyperlipidemia, unspecified; L84 Corns and callosities; I10 Essential (primary) hypertension; E66.9 Obesity, unspecified; F31.9 Bipolar disorder, unspecified; Z68.36 Body mass index [BMI] 36.0-36.9, adult; Z79.84 Long term (current) use of oral hypoglycemic drugs; Z79.4 Long term (current) use of insulin ==

== ENCOUNTER → 2019-05-06 | Outpatient (CLI) | payer BC | LOC: HYPER 09:22 | DX: E11.621 Type 2 diabetes mellitus with foot ulcer (principal); L97.512 Non-pressure chronic ulcer of other part of right foot with fat layer exposed; L97.521 Non-pressure chronic ulcer of other part of left foot limited to breakdown of skin; I10 Essential (primary) hypertension; E78.5 Hyperlipidemia, unspecified; E66.9 Obesity, unspecified; L84 Corns and callosities; Z68.36 Body mass index [BMI] 36.0-36.9, adult; Z79.84 Long term (current) use of oral hypoglycemic drugs; Z79.4 Long term (current) use of insulin ==

== ENCOUNTER → 2019-05-20 | Outpatient (CLI) | payer BC | LOC: HYPER 08:49 | DX: E11.621 Type 2 diabetes mellitus with foot ulcer (principal); L97.512 Non-pressure chronic ulcer of other part of right foot with fat layer exposed; L97.521 Non-pressure chronic ulcer of other part of left foot limited to breakdown of skin; I10 Essential (primary) hypertension; L84 Corns and callosities; E78.5 Hyperlipidemia, unspecified; E66.9 Obesity, unspecified; Z68.36 Body mass index [BMI] 36.0-36.9, adult; Z79.84 Long term (current) use of oral hypoglycemic drugs; Z79.4 Long term (current) use of insulin ==

== ENCOUNTER → 2019-06-07 | Outpatient (CLI) | payer BC | LOC: CANPRECLI → HYPER 09:52 | DX: E11.621 Type 2 diabetes mellitus with foot ulcer (principal); L97.512 Non-pressure chronic ulcer of other part of right foot with fat layer exposed; L97.521 Non-pressure chronic ulcer of other part of left foot limited to breakdown of skin; L84 Corns and callosities; E66.01 Morbid (severe) obesity due to excess calories; E78.5 Hyperlipidemia, unspecified; I10 Essential (primary) hypertension; Z68.36 Body mass index [BMI] 36.0-36.9, adult; Z79.84 Long term (current) use of oral hypoglycemic drugs; Z79.4 Long term (current) use of insulin ==

== ENCOUNTER → 2019-06-10 | Outpatient (CLI) | payer BC | LOC: HYPER 08:14 | DX: E11.621 Type 2 diabetes mellitus with foot ulcer (principal); L97.512 Non-pressure chronic ulcer of other part of right foot with fat layer exposed; L97.521 Non-pressure chronic ulcer of other part of left foot limited to breakdown of skin; I10 Essential (primary) hypertension; E78.5 Hyperlipidemia, unspecified; L84 Corns and callosities; E66.9 Obesity, unspecified; Z68.36 Body mass index [BMI] 36.0-36.9, adult; Z79.84 Long term (current) use of oral hypoglycemic drugs; Z79.4 Long term (current) use of insulin ==

== ENCOUNTER → 2019-06-25 | Outpatient (CLI) | payer BC | LOC: HYPER 08:28 | DX: E11.621 Type 2 diabetes mellitus with foot ulcer (principal); L97.512 Non-pressure chronic ulcer of other part of right foot with fat layer exposed; L97.521 Non-pressure chronic ulcer of other part of left foot limited to breakdown of skin; L84 Corns and callosities; E78.5 Hyperlipidemia, unspecified; I10 Essential (primary) hypertension; E66.9 Obesity, unspecified; F31.9 Bipolar disorder, unspecified; Z68.36 Body mass index [BMI] 36.0-36.9, adult; Z79.4 Long term (current) use of insulin ==

== ENCOUNTER → 2019-07-05 | Outpatient (CLI) | payer BC | LOC: HYPER 08:58 | DX: E11.621 Type 2 diabetes mellitus with foot ulcer (principal); L97.512 Non-pressure chronic ulcer of other part of right foot with fat layer exposed; L97.521 Non-pressure chronic ulcer of other part of left foot limited to breakdown of skin; L84 Corns and callosities; E66.01 Morbid (severe) obesity due to excess calories; E78.5 Hyperlipidemia, unspecified; I10 Essential (primary) hypertension; Z79.84 Long term (current) use of oral hypoglycemic drugs; Z79.4 Long term (current) use of insulin; Z68.36 Body mass index [BMI] 36.0-36.9, adult ==

== ENCOUNTER → 2019-07-13 | Outpatient (CLI) | payer BC | LOC: HYPER 11:42 | DX: E11.621 Type 2 diabetes mellitus with foot ulcer (principal); L97.512 Non-pressure chronic ulcer of other part of right foot with fat layer exposed; L97.521 Non-pressure chronic ulcer of other part of left foot limited to breakdown of skin; L84 Corns and callosities; E78.5 Hyperlipidemia, unspecified; I10 Essential (primary) hypertension; E66.9 Obesity, unspecified; Z68.36 Body mass index [BMI] 36.0-36.9, adult; Z79.4 Long term (current) use of insulin ==

== ENCOUNTER → 2019-07-21 | Outpatient (CLI) | payer BC | LOC: HYPER 09:22 | DX: E11.621 Type 2 diabetes mellitus with foot ulcer (principal); L97.512 Non-pressure chronic ulcer of other part of right foot with fat layer exposed; L97.521 Non-pressure chronic ulcer of other part of left foot limited to breakdown of skin; L84 Corns and callosities; E78.5 Hyperlipidemia, unspecified; I10 Essential (primary) hypertension; E66.9 Obesity, unspecified; F31.9 Bipolar disorder, unspecified; Z68.36 Body mass index [BMI] 36.0-36.9, adult; Z79.4 Long term (current) use of insulin ==

== ENCOUNTER → 2019-08-02 | Outpatient (CLI) | payer BC | LOC: HYPER 13:44 | DX: E11.621 Type 2 diabetes mellitus with foot ulcer (principal); L97.512 Non-pressure chronic ulcer of other part of right foot with fat layer exposed; L97.521 Non-pressure chronic ulcer of other part of left foot limited to breakdown of skin; L84 Corns and callosities; E78.5 Hyperlipidemia, unspecified; I10 Essential (primary) hypertension; E66.9 Obesity, unspecified; Z68.36 Body mass index [BMI] 36.0-36.9, adult; Z79.4 Long term (current) use of insulin ==

== ENCOUNTER → 2019-08-11 | Outpatient (CLI) | payer BC | LOC: HYPER 08:57 | DX: E11.621 Type 2 diabetes mellitus with foot ulcer (principal); L97.512 Non-pressure chronic ulcer of other part of right foot with fat layer exposed; L97.521 Non-pressure chronic ulcer of other part of left foot limited to breakdown of skin; B95.62 Methicillin resistant Staphylococcus aureus infection as the cause of diseases classified elsewhere; L84 Corns and callosities; E78.5 Hyperlipidemia, unspecified; I10 Essential (primary) hypertension; E66.9 Obesity, unspecified; Z68.36 Body mass index [BMI] 36.0-36.9, adult; F31.9 Bipolar disorder, unspecified; Z79.4 Long term (current) use of insulin ==

== ENCOUNTER → 2019-09-24 | Outpatient (CLI) | payer BC ==
[2019-09-24 11:50] VITALS: BP 133/77
--- NOTE | 2019-09-24 12:34 | NUR ---
VASCULAR ACCESS CONSULTED FOR PICC LINE FOR HOME ABX. PT'S LABS,MEDS,HISTORY,ORDER AND CONSENT VERIFIED. DSISCUSSED BENEFITS AND RISK OF PICC WITH PT,VERBALIZED UNDERSTANDING. GRETEL WEAVER WIDELY PATENT WITH USG. 4FR POWER SL PICC TRIMMED TO 45CM INSERTED TO 0CM. STAT CXR ORDERED. WALLET CARD AND INFO GIVEN TO PT. PT TOLERATED WELL.
--- NOTE | 2019-09-24 12:46 | NUR ---
PICC RELEASED FOR IMMEDIATE USE PER PROTOCOL TO [facility]OLB[facility]. CXR CONFIRMED PLACEMENT AT [facility]
[2019-09-24 13:30] LABS: HEMOGLOBIN 12.7 gm/dL (14.0-18.0); MCH 29.3 pg (26.0-34.0); MCHC 33.5 g/dL (28.0-37.0); MCV 87.4 fL (80.0-100.0); RBC 4.35 mil/uL (4.50-6.00); RDW 14.4 % (10.5-14.5); WBC 14.8 thou/uL (4.0-11.0)
[2019-09-24 13:50] LABS: ALBUMIN 3.5 g/dL (3.4-5.0); CALCIUM 8.9 mg/dL (8.5-10.1); CREATININE 0.9 mg/dL (0.7-1.3); POTASSIUM 3.5 mmol/L (3.5-5.1); TOTAL BILIRUBIN 0.3 mg/dL (<0.1-1.0); TOTAL PROTEIN 7.5 g/dL (6.4-8.2)
--- NOTE | 2019-09-24 15:12 | NUR ---
IN FOR PICC LINE PLACEMENT AND 1ST DOSE OF VANCOMYCIN FOR RT GREAT TOE MRSA DIABETIC INFECTION. IV TEAM PLACED SINGLE LUMEN PICC IN GRETEL. VERIFIED PLACEMENT WITH CXR. VANCOMYCIN INFUSED OVER 2 HOURS AND TOLERATED WELL WITHOUT INCIDENT. LABS DRAWN FROM PICC LINE WITHOUT DIFFICULTY AND FAXED RESULTS TO DR. EMMANUEL. ENCOURAGED PATIENT TO DRINK PLENTY OF FLUIDS AND NOTIFY FOR RASH, BLOODY DIARRHEA, FEVER, CHILLS. [facility] IS FOLLOWING PATIENT AT HOME. DISMISSED IN STABLE CONDITION.
== END ==
LOC: OPONC 11:17
PROVIDERS: Specialist
DX: J18.9 Pneumonia, unspecified organism (principal); B95.62 Methicillin resistant Staphylococcus aureus infection as the cause of diseases classified elsewhere
CPT/HCPCS: 27000; 95000; 95001

== ENCOUNTER → 2019-10-19 | Outpatient (CLI) | payer BC | LOC: HYPER 14:01 | DX: E11.621 Type 2 diabetes mellitus with foot ulcer (principal); L97.512 Non-pressure chronic ulcer of other part of right foot with fat layer exposed; L97.521 Non-pressure chronic ulcer of other part of left foot limited to breakdown of skin; L84 Corns and callosities; A49.02 Methicillin resistant Staphylococcus aureus infection, unspecified site; E66.01 Morbid (severe) obesity due to excess calories; E78.5 Hyperlipidemia, unspecified; I10 Essential (primary) hypertension; F31.9 Bipolar disorder, unspecified; Z79.84 Long term (current) use of oral hypoglycemic drugs; Z79.4 Long term (current) use of insulin; Z68.36 Body mass index [BMI] 36.0-36.9, adult ==

== ENCOUNTER → 2019-10-26 | Outpatient (CLI) | payer BC | LOC: HYPER 10:27 | DX: E11.621 Type 2 diabetes mellitus with foot ulcer (principal); L97.512 Non-pressure chronic ulcer of other part of right foot with fat layer exposed; L97.521 Non-pressure chronic ulcer of other part of left foot limited to breakdown of skin; A49.02 Methicillin resistant Staphylococcus aureus infection, unspecified site; E78.5 Hyperlipidemia, unspecified; I10 Essential (primary) hypertension; L84 Corns and callosities; E66.9 Obesity, unspecified; F31.9 Bipolar disorder, unspecified; Z68.36 Body mass index [BMI] 36.0-36.9, adult; Z79.4 Long term (current) use of insulin ==

== ENCOUNTER → 2019-11-17 | Outpatient (CLI) | payer BC | LOC: HYPER 12:12 | DX: E11.621 Type 2 diabetes mellitus with foot ulcer (principal); L97.512 Non-pressure chronic ulcer of other part of right foot with fat layer exposed; L97.521 Non-pressure chronic ulcer of other part of left foot limited to breakdown of skin; L84 Corns and callosities; A49.02 Methicillin resistant Staphylococcus aureus infection, unspecified site; E66.01 Morbid (severe) obesity due to excess calories; E78.5 Hyperlipidemia, unspecified; I10 Essential (primary) hypertension; Z68.36 Body mass index [BMI] 36.0-36.9, adult; Z79.84 Long term (current) use of oral hypoglycemic drugs; Z79.4 Long term (current) use of insulin ==

== ENCOUNTER → 2019-11-18 | Outpatient (CLI) | payer BC | LOC: ULTRA 10:10 | PROVIDERS: ATTEND Specialist | DX: L97.511 Non-pressure chronic ulcer of other part of right foot limited to breakdown of skin (principal) ==

== ENCOUNTER → 2019-12-01 | Outpatient (CLI) | payer BC | LOC: HYPER 13:07 | PROVIDERS: ATTEND Emergency Medicine Emergency Medical Services | DX: E11.621 Type 2 diabetes mellitus with foot ulcer (principal); L97.512 Non-pressure chronic ulcer of other part of right foot with fat layer exposed; L97.521 Non-pressure chronic ulcer of other part of left foot limited to breakdown of skin; S80.811A Abrasion, right lower leg, initial encounter; S90.811A Abrasion, right foot, initial encounter; B95.62 Methicillin resistant Staphylococcus aureus infection as the cause of diseases classified elsewhere; L84 Corns and callosities; E78.5 Hyperlipidemia, unspecified; I10 Essential (primary) hypertension; E66.9 Obesity, unspecified; F31.9 Bipolar disorder, unspecified; Z68.36 Body mass index [BMI] 36.0-36.9, adult; Z79.4 Long term (current) use of insulin; X58.XXXA Exposure to other specified factors, initial encounter; Y93.89 Activity, other specified; Y92.89 Other specified places as the place of occurrence of the external cause; Y99.8 Other external cause status ==

== ENCOUNTER → 2019-12-08 | Outpatient (CLI) | payer BC | LOC: HYPER 07:56 | PROVIDERS: ATTEND Emergency Medicine | DX: E11.621 Type 2 diabetes mellitus with foot ulcer (principal); L97.512 Non-pressure chronic ulcer of other part of right foot with fat layer exposed; L97.522 Non-pressure chronic ulcer of other part of left foot with fat layer exposed; B95.62 Methicillin resistant Staphylococcus aureus infection as the cause of diseases classified elsewhere; L84 Corns and callosities; E78.5 Hyperlipidemia, unspecified; I10 Essential (primary) hypertension; E66.9 Obesity, unspecified; F31.9 Bipolar disorder, unspecified; Z68.36 Body mass index [BMI] 36.0-36.9, adult; Z79.4 Long term (current) use of insulin ==

== ENCOUNTER → 2019-12-16 | Outpatient (CLI) | payer BC | LOC: HYPER 10:09 | PROVIDERS: ATTEND Emergency Medicine Emergency Medical Services | DX: E11.621 Type 2 diabetes mellitus with foot ulcer (principal); L97.512 Non-pressure chronic ulcer of other part of right foot with fat layer exposed; L97.521 Non-pressure chronic ulcer of other part of left foot limited to breakdown of skin; L84 Corns and callosities; A49.02 Methicillin resistant Staphylococcus aureus infection, unspecified site; E78.5 Hyperlipidemia, unspecified; E66.9 Obesity, unspecified; I10 Essential (primary) hypertension; F31.9 Bipolar disorder, unspecified; Z79.84 Long term (current) use of oral hypoglycemic drugs; Z79.4 Long term (current) use of insulin; Z68.36 Body mass index [BMI] 36.0-36.9, adult ==

== ENCOUNTER → 2019-12-23 | Outpatient (CLI) | payer BC | LOC: HYPER 07:39 | PROVIDERS: ATTEND Emergency Medicine | DX: E11.621 Type 2 diabetes mellitus with foot ulcer (principal); L97.521 Non-pressure chronic ulcer of other part of left foot limited to breakdown of skin; L97.512 Non-pressure chronic ulcer of other part of right foot with fat layer exposed; L84 Corns and callosities; A49.02 Methicillin resistant Staphylococcus aureus infection, unspecified site; E66.01 Morbid (severe) obesity due to excess calories; E78.5 Hyperlipidemia, unspecified; I10 Essential (primary) hypertension; F31.9 Bipolar disorder, unspecified; Z79.84 Long term (current) use of oral hypoglycemic drugs; Z79.4 Long term (current) use of insulin; Z68.36 Body mass index [BMI] 36.0-36.9, adult ==

== ENCOUNTER → 2020-01-06 | Outpatient (CLI) | payer BC | LOC: HYPER 12:13 | PROVIDERS: ATTEND Emergency Medicine | DX: E11.621 Type 2 diabetes mellitus with foot ulcer (principal); L97.512 Non-pressure chronic ulcer of other part of right foot with fat layer exposed; L97.521 Non-pressure chronic ulcer of other part of left foot limited to breakdown of skin; L84 Corns and callosities; A49.02 Methicillin resistant Staphylococcus aureus infection, unspecified site; E66.01 Morbid (severe) obesity due to excess calories; E78.5 Hyperlipidemia, unspecified; I10 Essential (primary) hypertension; F31.9 Bipolar disorder, unspecified; Z68.36 Body mass index [BMI] 36.0-36.9, adult; Z79.84 Long term (current) use of oral hypoglycemic drugs; Z79.4 Long term (current) use of insulin ==

== ENCOUNTER 2020-01-11 19:50 | Emergency (ER) | payer BC ==
[~2020-01-11] VITALS: Ht 182.9 cm; Wt 133.8 kg
[2020-01-11 21:45] VITALS: BP 146/52
== END 2020-01-11 21:45 | disposition home or self-care (01) ==
LOC: ER 19:50
DX: L03.116 Cellulitis of left lower limb (principal); I10 Essential (primary) hypertension; E11.9 Type 2 diabetes mellitus without complications; E78.5 Hyperlipidemia, unspecified; Z79.4 Long term (current) use of insulin; Z79.899 Other long term (current) drug therapy

== ENCOUNTER → 2020-01-20 | Outpatient (CLI) | payer BC | LOC: HYPER 01-12 10:50 | PROVIDERS: ATTEND Emergency Medicine | DX: E11.621 Type 2 diabetes mellitus with foot ulcer (principal); L97.512 Non-pressure chronic ulcer of other part of right foot with fat layer exposed; L97.521 Non-pressure chronic ulcer of other part of left foot limited to breakdown of skin; L84 Corns and callosities; A49.02 Methicillin resistant Staphylococcus aureus infection, unspecified site; E66.01 Morbid (severe) obesity due to excess calories; E78.5 Hyperlipidemia, unspecified; I10 Essential (primary) hypertension; F31.9 Bipolar disorder, unspecified; Z68.36 Body mass index [BMI] 36.0-36.9, adult; Z79.84 Long term (current) use of oral hypoglycemic drugs; Z79.4 Long term (current) use of insulin ==

== ENCOUNTER → 2020-02-03 | Outpatient (CLI) | payer BC | LOC: HYPER 09:56 | PROVIDERS: ATTEND Emergency Medicine | DX: E11.621 Type 2 diabetes mellitus with foot ulcer (principal); L97.512 Non-pressure chronic ulcer of other part of right foot with fat layer exposed; L97.521 Non-pressure chronic ulcer of other part of left foot limited to breakdown of skin; E11.40 Type 2 diabetes mellitus with diabetic neuropathy, unspecified; S51.801D Unspecified open wound of right forearm, subsequent encounter; B95.62 Methicillin resistant Staphylococcus aureus infection as the cause of diseases classified elsewhere; L84 Corns and callosities; E78.5 Hyperlipidemia, unspecified; I10 Essential (primary) hypertension; E66.9 Obesity, unspecified; Z68.36 Body mass index [BMI] 36.0-36.9, adult; Z79.4 Long term (current) use of insulin; X58.XXXD Exposure to other specified factors, subsequent encounter ==

== ENCOUNTER → 2020-02-23 | Outpatient (CLI) | payer OTHER | LOC: HYPER 15:49 | PROVIDERS: ATTEND Emergency Medicine | DX: E11.621 Type 2 diabetes mellitus with foot ulcer (principal); L97.512 Non-pressure chronic ulcer of other part of right foot with fat layer exposed; L97.521 Non-pressure chronic ulcer of other part of left foot limited to breakdown of skin; L84 Corns and callosities; A49.02 Methicillin resistant Staphylococcus aureus infection, unspecified site; E66.01 Morbid (severe) obesity due to excess calories; E78.5 Hyperlipidemia, unspecified; I10 Essential (primary) hypertension; Z68.36 Body mass index [BMI] 36.0-36.9, adult; Z79.84 Long term (current) use of oral hypoglycemic drugs; Z79.4 Long term (current) use of insulin ==

== ENCOUNTER 2020-03-12 05:46 | Emergency (ER) | payer OTHER ==
[~2020-03-12] VITALS: Ht 182.9 cm; Wt 138.3 kg
[2020-03-12 06:30] LABS: ABSOLUTE NEUTROPHILS 7.6 thou/uL (1.4-8.2); LYMPHOCYTES 20.6 % (24.0-44.0)
[2020-03-12 06:31] LABS: BASOPHILS 0.7 % (0.0-2.0); EOSINOPHILS 3.8 % (0.0-3.0); HEMATOCRIT 37.5 % (42.0-52.0); HEMOGLOBIN 12.5 gm/dL (14.0-18.0); MCH 29.5 pg (26.0-34.0); MCHC 33.3 g/dL (28.0-37.0); MCV 88.5 fL (80.0-100.0); MONOCYTES 5.9 % (1.0-8.0); PLATELET COUNT 232 thou/uL (150-400); RBC 4.24 mil/uL (4.50-6.00); RDW 15.9 % (10.5-14.5)
[2020-03-12 06:40] LABS: ANION GAP 14 mmol/L (7-16); BUN 14 mg/dL (7-18); CALCIUM 8.6 mg/dL (8.5-10.1); CHLORIDE 103 mmol/L (98-107); CO2 21 mmol/L (21-32); CREATININE 0.7 mg/dL (0.7-1.3); GLUCOSE 291 mg/dL (74-106); POTASSIUM 4.4 mmol/L (3.5-5.1); SODIUM 138 mmol/L (136-145)
[2020-03-12 06:48] LABS: TROPONIN-I <0.06 ng/mL (<0.06)
[2020-03-12 09:17] VITALS: BP 149/80
--- NOTE | 2020-03-13 08:13 | EKG ---
[facility] [place] [address] ELECTROCARDIOGRAM REPORT Name: LAURA MEMBRENO [facility] [id number] Admission: 03/12/20 Attend Phys: Discharge: 03/12/20 Date of : 76 Report #: [id number] THIS REPORT FOR: cc: Parvez Vickers,Justino Quiñonez MD 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 : 1980 Requested By: Aristeo Rascon Order Number: [id number] MD: Justino Donahue Measurements Intervals [place] Rate: 95 P: 27 CO: 188 QRS: 4 QRSD: 115 T: 15 QT: 395 QTc: 497 Interpretive Statements Sinus rhythm Poor R wave progression Compared to ECG 03/07/2019 21:50:21 No significant change Electronically Signed On 03-13-2020 8:13:39 CDT by Justino Donahue [email or web address] <ELECTRONICALLY SIGNED> By: Justino Donahue MD, [facility] 03/13/20 0813 0608 0608 Justino Donahue MD, [facility] /EPI
== END 2020-03-12 09:18 | disposition home or self-care (01) ==
LOC: ER 05:46
PROVIDERS: Emergency Medicine
DX: R07.89 Other chest pain (principal); I10 Essential (primary) hypertension; E11.9 Type 2 diabetes mellitus without complications; E78.5 Hyperlipidemia, unspecified; Z79.4 Long term (current) use of insulin; Z79.82 Long term (current) use of aspirin; Z79.899 Other long term (current) drug therapy

== ENCOUNTER → 2020-03-23 | Outpatient (CLI) | payer OTHER | LOC: HYPER 15:45 | PROVIDERS: ATTEND Emergency Medicine | DX: E11.621 Type 2 diabetes mellitus with foot ulcer (principal); L97.512 Non-pressure chronic ulcer of other part of right foot with fat layer exposed; L97.521 Non-pressure chronic ulcer of other part of left foot limited to breakdown of skin; L84 Corns and callosities; A49.02 Methicillin resistant Staphylococcus aureus infection, unspecified site; E66.01 Morbid (severe) obesity due to excess calories; E78.5 Hyperlipidemia, unspecified; I10 Essential (primary) hypertension; F31.9 Bipolar disorder, unspecified; Z79.4 Long term (current) use of insulin; Z68.34 Body mass index [BMI] 34.0-34.9, adult ==

== ENCOUNTER → 2020-04-06 | Outpatient (CLI) | payer OTHER | LOC: HYPER 15:47 | PROVIDERS: ATTEND Emergency Medicine | DX: E11.621 Type 2 diabetes mellitus with foot ulcer (principal); L97.512 Non-pressure chronic ulcer of other part of right foot with fat layer exposed; L97.521 Non-pressure chronic ulcer of other part of left foot limited to breakdown of skin; S51.801D Unspecified open wound of right forearm, subsequent encounter; B95.62 Methicillin resistant Staphylococcus aureus infection as the cause of diseases classified elsewhere; E78.5 Hyperlipidemia, unspecified; I10 Essential (primary) hypertension; L84 Corns and callosities; E66.9 Obesity, unspecified; F31.9 Bipolar disorder, unspecified; Z68.36 Body mass index [BMI] 36.0-36.9, adult; Z79.4 Long term (current) use of insulin; Y04.1XXD Assault by human bite, subsequent encounter ==

== ENCOUNTER 2020-04-12 17:27 | Inpatient (IN) | payer OTHER ==
[~2020-04-12] VITALS: Ht 182.9 cm; Wt 128.8 kg
[2020-04-12 17:29] VITALS: BP 171/85
[2020-04-12 18:32] LABS: ABSOLUTE NEUTROPHILS 13.4 thou/uL (1.4-8.2); BASOPHILS 0.2 % (0.0-2.0); HEMOGLOBIN 11.8 gm/dL (14.0-18.0); LYMPHOCYTES 15.9 % (24.0-44.0); MCH 28.4 pg (26.0-34.0); MCHC 32.9 g/dL (28.0-37.0); MCV 86.5 fL (80.0-100.0); MONOCYTES 6.1 % (1.0-8.0); PLATELET COUNT 312 thou/uL (150-400); POLYS 76.8 % (36.0-66.0); RBC 4.16 mil/uL (4.50-6.00); RDW 14.9 % (10.5-14.5); WBC 17.4 thou/uL (4.0-11.0)
[2020-04-12 18:43] LABS: CALCIUM 8.8 mg/dL (8.5-10.1); POTASSIUM 4.1 mmol/L (3.5-5.1)
[2020-04-12 18:47] LABS: ALBUMIN 3.5 g/dL (3.4-5.0); DIRECT BILIRUBIN 0.1 mg/dL (<0.1-0.2); TOTAL BILIRUBIN 0.4 mg/dL (0.2-1.0); TOTAL PROTEIN 7.6 g/dL (6.4-8.2)
[2020-04-12] MEDS ORDERED: LEVOFLOXACIN750 MG PO (21:32)
[2020-04-13 06:11] LABS: HEMATOCRIT 36.3 % (42.0-52.0); HEMOGLOBIN 11.8 gm/dL (14.0-18.0); MCH 28.4 pg (26.0-34.0); MCHC 32.5 g/dL (28.0-37.0); MCV 87.3 fL (80.0-100.0); RBC 4.16 mil/uL (4.50-6.00); RDW 15.1 % (10.5-14.5); WBC 12.3 thou/uL (4.0-11.0)
[2020-04-13 06:38] LABS: CALCIUM 8.5 mg/dL (8.5-10.1); CREATININE 0.8 mg/dL (0.7-1.3); POTASSIUM 4.1 mmol/L (3.5-5.1)
[2020-04-13 14:40] VITALS: BP 160/86
[2020-04-13 15:00] VITALS: BP 166/82
[2020-04-13 15:36] VITALS: BP 125/67
--- NOTE | 2020-04-13 18:13 | NUR ---
PATIENT ARRIVED FROM ED VIA W/C, VSS AND AFEBRILE. ADMISION COMPLETED AND POC INITIATED. C/O BLE MEDCATED PER ORDERS. AND WILL CONTINUE WITH POC.
[2020-04-14 00:06] LABS: GLYCOHEMOGLOBIN (HGB A1C) 8.4 % (4.8-5.6)
--- NOTE | 2020-04-14 03:03 | NUR ---
PT IS ALERT AND ORIENTD X4. LUNGS ARE CLEAR. ABDOMEN IS ROUND BOWEL SOUNDS HYPOACTIVE X4. ANTBIOTIC OINT TO LEGS BILATERAL. COMPLAINS OF PAIN IN FEET BILATERAL. PAIN MEDS GIVEN ON AUG FOR COMPLAINTS OF PAIN. ANTBITOCS GIVEN ORDERED ON AUG FOR TIME OF ADMINISTRATION. WILL CONTINUE TO ASSESS AND MONITOR PER NURSING.
[2020-04-14 03:50] VITALS: BP 161/79
[2020-04-14 11:15] VITALS: BP 154/91
--- NOTE | 2020-04-14 13:32 | NUR ---
Nutrition: pt admitted with sepsis, cellulitis, left and right diabetic toe ulcers. BG 180-198, A1C 8.4. This is improved from spring when A1C was reportedly 14. Pt eating well on carb controlled diet, 100% of meals. Stable weights although BMI 40, extreme class 3 obesity. On metformin, glargine insulin. Pt voices no diet related questions at this time. MRI today. Agreeable to Ensure max daily and well aware of need to eat high protein foods. Consider low nutrition risk.
--- NOTE | 2020-04-14 13:54 | HC ---
[facility] [place] [address] CONSULTATION Name: LAURA MEMBRENO Room #: 209-P ADM IN M.R.#: [id number] Admission: 04/12/20 Attend Phys: Tree Gaytan MD Discharge: Date of : 76 Report #: [id number] THIS REPORT FOR: cc: Parvez Vickers,Mika Jeong MD ~ DATE OF SERVICE: 04/13/2020 INFECTIOUS DISEASE CONSULTATION ATTENDING PHYSICIAN: Dr. Gaytan REASON FOR EVALUATION: Febrile illness with suspected deep seated infection involving the distal aspect of the left lower extremity. HISTORY OF PRESENT ILLNESS: Chart reviewed, patient examined. This is a 39-year-old gentleman diagnosed with diabetes mellitus type 2 number of years ago. This has been complicated by peripheral neuropathy, has bilateral great toe ulcers, who over the course of the last couple of days had developed what he describes as flu-like symptoms, fevers, generalized malaise, and chest discomfort, felt he had a sore throat as well; however, he woke up on the day of admission, was experiencing inflammatory eruption involving the distal aspect of the medial portion of his left foot, originally probably from the medial plantar ulcer. He was evaluated. Chest x-ray was noted to be unremarkable. Testing for group A strep and influenza was negative as well as COVID testing. MRI is pending. He is not encephalopathic. He was started empirically on vancomycin and had been on levofloxacin as an outpatient. He still has some persistent discomfort in his chest, although he has not experienced significant cough. He notes he has been anorexic with poor p.o. intake. ALLERGIES: None known. MEDICATIONS: Include insulin glargine, atorvastatin, enoxaparin, vancomycin, multivitamin, lithium, venlafaxine, bupropion, lisinopril, famotidine, metformin XR, insulin lispro, hydrocodone, ipratropium, albuterol inhaler. PAST MEDICAL HISTORY: As described above, diabetes mellitus which has been complicated by peripheral neuropathy, diabetic foot ulcers, history of bipolar disease, hyperlipidemia, hypertension. SOCIAL HISTORY: Nonsmoker, no ethanol, no illicit drug use. FAMILY HISTORY: Noncontributory. [facility] [address] [place] [address] CONSULTATION Name: LAURA MEMBRENO Room #: 209-P [facility] IN .R.#: [id number] Admission: 04/12/20 Attend Phys: Tree Gaytan MD Discharge: Date of : 76 Report #: [id number] REVIEW OF SYSTEMS: Otherwise, unremarkable 10-point review of systems. PHYSICAL EXAMINATION: GENERAL: Mild to moderate distress, appears reasonably well nourished. VITAL SIGNS: Temperature 97.0, pulse 95, respirations 18, blood pressure 125/67. SKIN: Warm, dry. No rashes. HEENT: Normocephalic. Extraocular muscles intact. NECK: Supple. LUNGS: Somewhat diminished, otherwise clear breath sounds. HEART: Regular. I do not appreciate a murmur, borderline tachycardic. ABDOMEN: Obese, soft, nontender. EXTREMITIES: Left lower extremity was evaluated, has an erythrodermic type eruption over the dorsal aspect of the foot on to the leg. There is some lymphangitic spread with some streaking. It is notably tender in the calf, pretibial site. Does have an ulcer in the setting of a callus over the medial plantar distal aspect of the great toe. I do not appreciate any tinea pedis at this point. There is no particular odor, no drainage. GENITOURINARY AND RECTAL: Deferred. LABORATORY DATA: Electrolytes: Sodium 140, potassium 4.1, chloride 104, bicarbonate is 26, anion gap of 10, BUN and creatinine 10 and 0.8, glucose of 209. CBC: White count of 12.3, H and H 11.8 and 36.3, platelets of 255. Mckinney testing was negative. Ferritin of 180. Sed rate of 50. Pro-calcitonin less than 0.05. Influenza antigen was negative. Chest x-ray showed no acute process. ASSESSMENT AND PLAN: Distal left lower extremity chronic ulcerations in the setting of diabetes mellitus. I suspect deeper infection, would be concerned about osteomyelitis in this setting. Await MRI results. We will continue empiric therapy at this point. He is not overtly toxic. At some point, we will likely need debridement. Continue to monitor expectantly. We will add incentive spirometry as well. <ELECTRONICALLY SIGNED> By: Mika Dodge MD 04/14/20 1354 1649 20 Mika Dodge MD /nt
[2020-04-14 15:56] VITALS: BP 139/66
--- NOTE | 2020-04-14 18:44 | NUR ---
ASSUMED CARE PT SHIFT CHANGE. ASSESSMENTS CHARTED.MEDS GIVEN PER AUG. PT ALERT AND ORIENTED.VSS. C/O PAIN IN FOOT MANAGED WITH PO PAIN MEDS. MRI OF FOOT THIS SHIFT REFER TO RESULTS. WOUND CARE COMPLETED. IV ABX GIVEN ORDERED. SPOUSE VISITED WITH PT THIS SHIFT. PT WHITNEYY SITTING UP ON COUCH WITH SPOUSE. DENIES NEEDS/CONCERNS. WILL CONT TO MONITOR AND FOLLOW POC. WILL PASS ON REPORT TO NOC RN.
[2020-04-14 20:15] VITALS: BP 150/87
[2020-04-15 00:06] VITALS: BP 145/78
--- NOTE | 2020-04-15 03:41 | NUR ---
PT ALERT AND ORIENTED. VITALS STABLE. REPORTS SOME ANXIOUSNESS AND UNABLE TO SLEEP. ATIVAN 0.5 PO GIVEN . LE EXTREMITY PAIN ALLEVIATED BY NORCO. HS BG 151. PT REFUSED REQUESTED TO RECEIVE HALF OF THE LANTUS DOSE AND ALSO NOT TO RECEIVE HUMALOG SLIDING SCALE. NO CHEST PAIN OR NAUSEA REPORTED. WILL FOLLOW POC.
[2020-04-15 04:38] VITALS: BP 149/74
[2020-04-15 08:06] VITALS: BP 134/79
[2020-04-15 11:08] VITALS: BP 143/97
--- NOTE | 2020-04-15 11:17 | NUR ---
ASSUMED CARE OF PT AT SHIFT CHANGE, IN GOOD SPIRITS, NEEDED PAIN MEDICATION IMMEDIATELY. WROTE ON BOARD WHEN DUE IF NEEDED. SEE SEPARATE INTERVENTIONS FOR ASSESSMENTS, WOUND CARE SEE ORDERS. ENCOURAGED HIM TO USE CALL LIGHT FOR ANY NEEDS. WILL CONTINUE TO MONITOR
[2020-04-15 16:24] VITALS: BP 139/88
[2020-04-15 19:00] VITALS: BP 147/74
[2020-04-16 04:21] VITALS: BP 142/75
--- NOTE | 2020-04-16 04:24 | NUR ---
NO EVENTS OVERNIGHT. PT ALERT AND ORIENTED. VSS. DENIES CHEST PAIN NAUSEA OR VOMITING. REPORTS BILATERAL TOE PAIN, ALLEVIATED BY NORCO. NO ANY OTHER CONCERNS. SR ON THE MONITOR. WILL CONTINUE TO FOLLOW POC.
[2020-04-16 07:50] VITALS: BP 141/72
[2020-04-16 08:39] VITALS: BP 149/88
[2020-04-16 12:11] VITALS: BP 148/93
[2020-04-16 15:39] VITALS: BP 159/89
[2020-04-16 20:07] VITALS: BP 162/85
[2020-04-17 05:09] VITALS: BP 155/90
--- NOTE | 2020-04-17 07:43 | NUR ---
PAIN WELL CONTROLLED.UP ADLIB.A/O X 4.ON VANCO IV.MONITOR SHOWS SR.POC CONTINUED.
[2020-04-17 08:25] VITALS: BP 145/90
[2020-04-17 11:45] VITALS: BP 155/82
[2020-04-17 16:30] VITALS: BP 145/75
--- NOTE | 2020-04-17 17:00 | NUR ---
ASSERSSMENT CHARTED - MEDS PER MAR - PT WITH CO'S OF PAIN IN LEFT FOOT GIVEN HYDROCODONE WITH GOOD RELIEF. ANIL DIET AND FLUIDS. UP TO THE BATHROOM NEEDED. NO CO'S OF NAUSEA. PT HOPING TO GO HOME TOMORROW AFTER CASTS PLACED TO FEET BILAT BY WOUND CARE. NO CO'S AT THE PRESENT TIME.
--- NOTE | 2020-04-17 18:06 | NUR ---
Met with patient who admits with cellulitis of feet. 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 He reports avail at [facility] to assist as needed. PCP Dr Vickers. He is to be seen by wound care clinic for special cast for feet. Anticipate patient can follow for outpatient apts at [facility]. [facility] following.
[2020-04-17 20:55] VITALS: BP 151/78
--- NOTE | 2020-04-18 03:53 | NUR ---
Assumed pt care at 1900. Pt is alert and oriented. No sign of distress noted in pt. Pt is laying in bed. Verbalizes pain to feet. Pt is ambulatory. Assessment completed and documented. Pain administered upon request. No acute events overnight. Continue to monitor. No further needs at this time.
[2020-04-18 04:45] VITALS: BP 147/76
--- NOTE | 2020-04-18 08:00 | HC ---
[facility] [place] [address] CONSULTATION Name: LAURA MEMBRENO Room #: 209-P [facility] IN M.R.#: [id number] Admission: 04/12/20 Attend Phys: Tree Gaytan MD Discharge: Date of : 76 Report #: [id number] THIS REPORT FOR: cc: Parvez Vickers Steven F. DO Al-Mubaslat, Ahmad MD ~ DATE OF SERVICE: 04/17/2020 ENDOCRINE CONSULTATION NOTE CONSULTING PHYSICIAN: Dr. Gaytan. REASON FOR CONSULTATION: Type 2 diabetes mellitus. HISTORY OF PRESENT ILLNESS: This is a 39-year-old male patient whose medical background is significant for multiple medical issues including type 2 diabetes mellitus diagnosed over 10 years ago as well as issues with a nonhealing lower extremity diabetic foot wound in addition to hypertension and hyperlipidemia. The patient states that he has been dealing with nonhealing foot wound for about 2-3 weeks, but presented to the ER with complaints of shortness of breath, cough and generalized myalgia. He was admitted for further care and monitoring. Again, the patient has had type 2 diabetes mellitus for over 10 years and has been maintained more recently on a combination of Humalog insulin scale, averaging about 40 units with meals, Toujeo insulin 130 units p.m., metformin 1000 mg b.i.d., Trulicity 1.5 mg daily. He notes that his blood glucose values have been well controlled and mostly in the mid 100 range for the most part until he has had worsening issues with his foot infection where he noted his blood glucose to rise into the high 100s and occasionally 200. He has not had major difficulties with hypoglycemia. The patient knows that while he had not had a prior history of diabetic retinopathy that he was found recently to have 2 bleeding spots in the right eye and that he is now being monitored for these. He is not known to have heart disease, stroke or peripheral neuropathy. REVIEW OF SYSTEMS: CONSTITUTIONAL: Fatigue, tiredness, myalgia. No body weight changes. HEENT: Negative for sore throat, sinus pain or ear drainage. PULMONARY: Negative for hemoptysis. Noted for shortness of breath and cough on presentation. CARDIAC: Negative for chest pain, palpitations, syncope or presyncope. GASTROINTESTINAL: Negative for abdominal pain, nausea, vomiting. [address] [address] CONSULTATION Name: LAURA MEMBRENO Room #: 209-P [facility] IN M.R.#: [id number] Admission: 04/12/20 Attend Phys: Tree Gaytan MD Discharge: Date of : 76 Report #: [id number] NEUROLOGY: Negative for loss of consciousness, headaches or seizure activity. Otherwise, review of systems noncontributory unless mentioned in HPI. PAST MEDICAL HISTORY: 1. Type 2 diabetes mellitus. 2. Hypertension. 3. Hyperlipidemia. 4. Bipolar disorder. 5. Obstructive sleep apnea. 6. Nonhealing lower extremity diabetic foot wound. 7. Diabetic peripheral neuropathy. OUTPATIENT MEDICATIONS: Include: 1. Toujeo insulin 130 units p.m., Humalog insulin 40 units with meals that is with a sliding scale. 2. Trulicity 1.5 mg weekly. 3. Metformin 1000 mg b.i.d. 4. Lisinopril 20 mg b.i.d. 5. [place] 450 mg b.i.d. 6. Multivitamins daily. 7. Wellbutrin SR 450 mg daily. 8. Albuterol p.r.n. 9. Aspirin 81 mg daily. ALLERGIES: No known drug allergies. FAMILY HISTORY: Noncontributory. SOCIAL HISTORY: Denies use of tobacco, alcohol or illicit drugs. PHYSICAL EXAMINATION: GENERAL: Pleasant male patient, not in apparent pain or distress. VITAL SIGNS: Blood pressure is 155/90 mmHg, heart rate is 92 beats per minute, respiration 18 per minute, temperature is 36.4 degrees Celsius. CONSTITUTIONAL: The patient is sitting upright in bed, appears comfortable, not in apparent distress. HEENT: Anicteric sclerae. Intact extraocular motions. NECK: Supple, without JVD, carotid bruits or lymphadenopathy. I do not appreciate thyromegaly. CHEST: Noted for good air entry bilaterally with scattered rales. No crackles. HEART: Regular rate and rhythm without murmurs or gallops. ABDOMEN: Soft, lax. No guarding. Active bowel sounds. EXTREMITIES: Lower extremity exam is noted for both great toes wrapped in surgical dressing. Faint pedal pulses. Diminished sensation to light touch. [address] [address] CONSULTATION Name: LAURA MEMBRENO Room #: 209-P [facility] IN M.R.#: [id number] Admission: 04/12/20 Attend Phys: Tree Gaytan MD Discharge: Date of : 76 Report #: [id number] NEUROLOGIC: Awake, alert and oriented to time, place and person. The remainder of his examination is nonfocal other than for the lower extremity sensory deficits. PSYCHIATRIC: Pleasant, interactive. Normal mood and affect. LABORATORY RESULTS: Blood glucose values over the past several days have been analyzed and these have mostly been under 180 mg/dL with occasional spikes just above 200 mg/dL. No current episode of severe hypoglycemia. Sodium 140, potassium 4.1, chloride 104, CO2 of 26, anion gap 10, BUN 10, creatinine 0.8, AST 38, total bilirubin 0.4, calcium 8.5, phosphorus 5.0, magnesium 2.0, uric acid 2.7, alkaline phosphatase 78, ALT 37, total protein 7.6, albumin 3.5, EGFR 107. Lactic acid 1.6. Total LDH 397. Troponin is negative. INR is 1.1. White blood count 12.3, hemoglobin 11.8, hematocrit 36.3, platelets 255. Hemoglobin A1c 8.4%. ASSESSMENT AND PLAN: 1. Type 2 diabetes mellitus. As noted above, the patient is rather insulin resistance, requires very large quantities of insulin at home, but with reportedly satisfactory control other than the past few weeks. During his hospital stay so far, the patient has needed a considerably lower amounts of insulin as he is maintained currently on Lantus insulin 66 units at bedtime in addition to Humalog supplemental scale and metformin with mostly well controlled blood glucose values. I counseled him about the importance of achieving and maintaining adequate glycemic control to avoid diabetic complications in the future to help improve his wound healing, which he understands well. I would like him to gradually resume his home based regimen upon discharge and follow up as an outpatient in 2-3 weeks. 2. Hypertension. The patient's level of blood pressure control is adequate on the current regimen, he is to continue with the same. 3. Hyperlipidemia. The patient is maintained on atorvastatin therapy and tolerates it well, he is advised to continue with the same. I certainly appreciate this consultation by Dr. Gaytan. <ELECTRONICALLY SIGNED> By: Jovanny Castellanos MD 04/18/20 0800 0915 1524 Jovanny Castellanos MD /nt
[2020-04-18 09:15] VITALS: BP 135/82
[2020-04-18] MEDS ORDERED: ZYVOX600 MG PO (10:06)
[2020-04-18 11:14] VITALS: BP 135/82
[2020-04-18 11:25] VITALS: BP 135/82
--- NOTE | 2020-04-18 11:54 | NUR ---
ASSESSMENT CHRTED - MEDS PER MAR - PATIENT WITH CAST PLACED TO LEFT FOOT IN WOUND CARE THIS AM. ANIL DIET AND FLUIDS NOT CO'S OF PAIN OR NAUSEA. PT HOME THIS AM INSTRUCTION RE HOME MEDS/ CARE AND FOLLOW UP GIVEN TO PATIENT. STATED UNDERSTANDING OF INSTRUCTION GIVEN. LEFT UNIT WHEEL CHAIR HOME VIA PVT VEHICLE ACCOMPANIED BY - NO CO'S AT TIME OF D/C.
--- NOTE | 2020-04-24 18:40 | HC ---
[facility] [place] [address] CONSULTATION Name: LAURA MEMBRENO Room #: 209-P [facility] IN M.R.#: [id number] Admission: 04/12/20 Attend Phys: Tree Gaytan MD Discharge: 04/18/20 Date of : 76 Report #: [id number] THIS REPORT FOR: cc: Parvez Vickers,Codey Jackson MD ~ DATE OF SERVICE: 04/13/2020 CHIEF COMPLAINT: Diabetic ulcerations, bilateral great toes. HISTORY OF PRESENT ILLNESS: This is a 39-year-old male patient who was admitted through the Emergency Department with complaints of shortness of breath, general malaise and increasing redness involving both feet. He has been followed by us in the Wound Care Clinic. He has had intermittent improvement usually with the use of a total contact cast. He is not always willing to use that. He is not very compliant, otherwise with offloading options. PAST MEDICAL HISTORY: Positive for hypertension, hyperlipidemia, bipolar disorder, pneumonia, obstructive sleep apnea, type 2 diabetes mellitus and chronic ulcers of bilateral great toes. SOCIAL HISTORY: The patient denies tobacco use or alcohol use. 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 He is . FAMILY HISTORY: Positive for diabetes and hypertension. PAST MEDICAL HISTORY: Positive for type 2 diabetes mellitus, bipolar disorder, diabetes with neuropathy, a previous vasectomy, hypertension, and hyperlipidemia. MEDICATIONS: Include bupropion, Levaquin, Eskalith, venlafaxine, Prinivil, Glucophage, Lipitor, Trulicity and Levemir. ALLERGIES: No known drug allergies. REVIEW OF SYSTEMS: CONSTITUTIONAL: The patient complains of general fatigue and malaise. Denies fever or chills. EYES: The patient denies visual changes, redness, or drainage. ENT: The patient denies earache, nasal drainage or sore throat. CARDIOVASCULAR: The patient denies chest pain, palpitations or diaphoresis. PULMONARY: The patient denies cough or shortness of breath. GASTROINTESTINAL: The patient denies nausea, vomiting, diarrhea or abdominal pain. [facility] [address] [place] [address] CONSULTATION Name: LAURA MEMBRENO Ryan Room #: 209-P [facility] IN ..#: [id number] Admission: 04/12/20 Attend Phys: Tree Gaytan MD Discharge: 04/18/20 Date of : 76 Report #: [id number] ORTHOPEDIC: The patient notes redness and some swelling, but no pain in his feet and great toe ulcers bilaterally. Other systems in a 14-point review of systems are negative. PHYSICAL EXAMINATION: VITAL SIGNS: Include temperature 36.8, pulse 75, respiratory rate 16, blood pressure 166/82, pulse oximetry 98% on room air. GENERAL: This is a somewhat chronically ill-appearing male patient who appears to be in no obvious distress. HEENT: Head normocephalic. Nose and throat are clear. NECK: Supple. LUNGS: Clear. HEART: Regular rhythm. ABDOMEN: Soft, bowel sounds present. EXTREMITIES: Examination of the extremities demonstrate redness around both great toes, more so on the left than the right. There are neuropathic ulcers on the plantar aspects of both great toes. They are quite actually dirty and contaminated and there appears to be animal hair within the wound base and surrounding tissue. We have cleansed these thoroughly in the room. Distal pulses are palpable. NEUROLOGIC: The patient is alert, oriented and appropriate. LABORATORY STUDIES: Include sodium 138, potassium 4.1, chloride 103, CO2 of 28, BUN 12, creatinine 1.0, glucose 139, calcium is 8.8, albumin is 3.5. White blood cell count 17.4 with a hemoglobin of 11.8. CLINICAL IMPRESSION: 1. Diabetic neuropathic ulcerations, bilateral great toes. 2. Cellulitis and wound infection, bilateral great toes, left greater than right. 3. Diabetes type 2 with peripheral neuropathy. 4. Bipolar disorder. 5. Hypertension. 6. Hyperlipidemia. RECOMMENDATIONS: At this point in time, the patient will be started on intravenous antibiotic therapy. I have obtained a culture and sensitivity at the bedside from the left great toe ulceration. It would be beneficial perhaps to check x-rays of both feet, possibly MRI, check sed rate, CRP as well, [place] [address] CONSULTATION Name: LAURA MEMBRENO Room #: 209-P [facility] IN M.R.#: [id number] Admission: 04/12/20 Attend Phys: Tree Gaytan MD Discharge: 04/18/20 Date of : 76 Report #: [id number] on intravenous antibiotic therapy. I appreciate being asked to see him in consultation. We will follow him here in the hospital. <ELECTRONICALLY SIGNED> By: Codey Mckeon MD 04/24/20 1840 1130 191 Codey Mckeon MD /nt
== END 2020-04-18 11:50 | disposition home or self-care (01) | DRG 872 ==
LOC: ER 17:27 → EROBS 21:03 → 2N 21:03
PROVIDERS: Emergency Medicine; Nurse Practitioner Family; ADMIT Hospitalist; ATTEND Hospitalist
DX: A41.9 Sepsis, unspecified organism (principal); L97.929 Non-pressure chronic ulcer of unspecified part of left lower leg with unspecified severity; L03.032 Cellulitis of left toe; E11.621 Type 2 diabetes mellitus with foot ulcer; E11.42 Type 2 diabetes mellitus with diabetic polyneuropathy; E78.5 Hyperlipidemia, unspecified; I10 Essential (primary) hypertension; G47.33 Obstructive sleep apnea (adult) (pediatric); E66.9 Obesity, unspecified; F32.9 Major depressive disorder, single episode, unspecified; Z20.828 Contact with and (suspected) exposure to other viral communicable diseases; Z68.38 Body mass index [BMI] 38.0-38.9, adult; Z79.4 Long term (current) use of insulin; Z79.899 Other long term (current) drug therapy; Z79.82 Long term (current) use of aspirin
CPT/HCPCS: 10081

== ENCOUNTER → 2020-04-20 | Outpatient (CLI) | payer OTHER ==
[~2020-04-20] MED LIST changes: +LEVOFLOXACIN750 MG PO; +ZYVOX600 MG PO
== END ==
LOC: HYPER 09:21
PROVIDERS: ATTEND Emergency Medicine
DX: E11.621 Type 2 diabetes mellitus with foot ulcer (principal); L97.512 Non-pressure chronic ulcer of other part of right foot with fat layer exposed; L97.521 Non-pressure chronic ulcer of other part of left foot limited to breakdown of skin; L84 Corns and callosities; A49.02 Methicillin resistant Staphylococcus aureus infection, unspecified site; E66.01 Morbid (severe) obesity due to excess calories; E78.5 Hyperlipidemia, unspecified; I10 Essential (primary) hypertension; F31.9 Bipolar disorder, unspecified; Z68.36 Body mass index [BMI] 36.0-36.9, adult; Z79.4 Long term (current) use of insulin

== ENCOUNTER → 2020-05-10 | Outpatient (CLI) | payer OTHER | LOC: HYPER 09:16 | PROVIDERS: ATTEND Emergency Medicine | DX: E11.621 Type 2 diabetes mellitus with foot ulcer (principal); L97.512 Non-pressure chronic ulcer of other part of right foot with fat layer exposed; L97.522 Non-pressure chronic ulcer of other part of left foot with fat layer exposed; L84 Corns and callosities; A49.02 Methicillin resistant Staphylococcus aureus infection, unspecified site; E78.5 Hyperlipidemia, unspecified; E66.9 Obesity, unspecified; I10 Essential (primary) hypertension; F31.9 Bipolar disorder, unspecified; Z79.4 Long term (current) use of insulin; Z68.36 Body mass index [BMI] 36.0-36.9, adult ==

== ENCOUNTER → 2020-05-17 | Outpatient (CLI) | payer OTHER | LOC: MRI 12:38 | PROVIDERS: ATTEND Neuromusculoskeletal Medicine & OMM | DX: M19.011 Primary osteoarthritis, right shoulder (principal); M75.81 Other shoulder lesions, right shoulder ==

== ENCOUNTER → 2020-05-17 | Outpatient (CLI) | payer OTHER | LOC: HYPER 13:41 | PROVIDERS: ATTEND Emergency Medicine | DX: E11.621 Type 2 diabetes mellitus with foot ulcer (principal); L97.512 Non-pressure chronic ulcer of other part of right foot with fat layer exposed; L97.521 Non-pressure chronic ulcer of other part of left foot limited to breakdown of skin; L84 Corns and callosities; A49.02 Methicillin resistant Staphylococcus aureus infection, unspecified site; E78.5 Hyperlipidemia, unspecified; E66.01 Morbid (severe) obesity due to excess calories; I10 Essential (primary) hypertension; F31.9 Bipolar disorder, unspecified; Z79.4 Long term (current) use of insulin; Z68.36 Body mass index [BMI] 36.0-36.9, adult ==

== ENCOUNTER → 2020-05-24 | Outpatient (CLI) | payer OTHER | LOC: HYPER 15:00 | PROVIDERS: ATTEND Emergency Medicine | DX: E11.621 Type 2 diabetes mellitus with foot ulcer (principal); L97.512 Non-pressure chronic ulcer of other part of right foot with fat layer exposed; L97.522 Non-pressure chronic ulcer of other part of left foot with fat layer exposed; L84 Corns and callosities; A49.02 Methicillin resistant Staphylococcus aureus infection, unspecified site; E78.5 Hyperlipidemia, unspecified; E66.01 Morbid (severe) obesity due to excess calories; I10 Essential (primary) hypertension; F31.9 Bipolar disorder, unspecified; Z79.4 Long term (current) use of insulin; Z68.36 Body mass index [BMI] 36.0-36.9, adult ==

== ENCOUNTER → 2020-06-07 | Outpatient (CLI) | payer OTHER | LOC: HYPER 16:05 | PROVIDERS: ATTEND Emergency Medicine Emergency Medical Services | DX: E11.621 Type 2 diabetes mellitus with foot ulcer (principal); L97.512 Non-pressure chronic ulcer of other part of right foot with fat layer exposed; L97.522 Non-pressure chronic ulcer of other part of left foot with fat layer exposed; L84 Corns and callosities; A49.02 Methicillin resistant Staphylococcus aureus infection, unspecified site; E78.5 Hyperlipidemia, unspecified; E66.01 Morbid (severe) obesity due to excess calories; I10 Essential (primary) hypertension; F31.9 Bipolar disorder, unspecified; Z79.4 Long term (current) use of insulin; Z68.36 Body mass index [BMI] 36.0-36.9, adult ==

== ENCOUNTER → 2020-06-21 | Outpatient (CLI) | payer OTHER | LOC: HYPER 10:32 | PROVIDERS: ATTEND Emergency Medicine | DX: E11.621 Type 2 diabetes mellitus with foot ulcer (principal); L97.512 Non-pressure chronic ulcer of other part of right foot with fat layer exposed; L97.522 Non-pressure chronic ulcer of other part of left foot with fat layer exposed; L84 Corns and callosities; A49.02 Methicillin resistant Staphylococcus aureus infection, unspecified site; E78.5 Hyperlipidemia, unspecified; E66.01 Morbid (severe) obesity due to excess calories; I10 Essential (primary) hypertension; F31.9 Bipolar disorder, unspecified; Z79.4 Long term (current) use of insulin; Z68.36 Body mass index [BMI] 36.0-36.9, adult ==

== ENCOUNTER → 2020-07-03 | Outpatient (CLI) | payer OTHER | LOC: HYPER 07:53 | PROVIDERS: ATTEND Emergency Medicine Emergency Medical Services | DX: E11.621 Type 2 diabetes mellitus with foot ulcer (principal); L97.512 Non-pressure chronic ulcer of other part of right foot with fat layer exposed; L97.522 Non-pressure chronic ulcer of other part of left foot with fat layer exposed; L84 Corns and callosities; A49.02 Methicillin resistant Staphylococcus aureus infection, unspecified site; E78.5 Hyperlipidemia, unspecified; E66.01 Morbid (severe) obesity due to excess calories; I10 Essential (primary) hypertension; F31.9 Bipolar disorder, unspecified; Z79.4 Long term (current) use of insulin; Z68.36 Body mass index [BMI] 36.0-36.9, adult ==

== ENCOUNTER → 2020-07-18 | Outpatient (CLI) | payer OTHER | LOC: HYPER 09:45 | PROVIDERS: ATTEND Emergency Medicine | DX: E11.621 Type 2 diabetes mellitus with foot ulcer (principal); L97.512 Non-pressure chronic ulcer of other part of right foot with fat layer exposed; L97.522 Non-pressure chronic ulcer of other part of left foot with fat layer exposed; L84 Corns and callosities; A49.02 Methicillin resistant Staphylococcus aureus infection, unspecified site; E78.5 Hyperlipidemia, unspecified; E66.01 Morbid (severe) obesity due to excess calories; I10 Essential (primary) hypertension; F31.9 Bipolar disorder, unspecified; Z79.4 Long term (current) use of insulin; Z68.36 Body mass index [BMI] 36.0-36.9, adult ==

== ENCOUNTER → 2020-07-31 | Outpatient (CLI) | payer OTHER | LOC: HYPER 12:07 | PROVIDERS: ATTEND Emergency Medicine | DX: E11.621 Type 2 diabetes mellitus with foot ulcer (principal); L97.512 Non-pressure chronic ulcer of other part of right foot with fat layer exposed; L97.522 Non-pressure chronic ulcer of other part of left foot with fat layer exposed; B95.62 Methicillin resistant Staphylococcus aureus infection as the cause of diseases classified elsewhere; L84 Corns and callosities; I10 Essential (primary) hypertension; E78.5 Hyperlipidemia, unspecified; E66.9 Obesity, unspecified; F31.9 Bipolar disorder, unspecified; Z68.36 Body mass index [BMI] 36.0-36.9, adult; Z79.4 Long term (current) use of insulin ==

== ENCOUNTER → 2020-08-14 | Outpatient (CLI) | payer OTHER | LOC: HYPER 13:55 | PROVIDERS: ATTEND Emergency Medicine | DX: E11.621 Type 2 diabetes mellitus with foot ulcer (principal); L97.512 Non-pressure chronic ulcer of other part of right foot with fat layer exposed; L97.522 Non-pressure chronic ulcer of other part of left foot with fat layer exposed; L84 Corns and callosities; B95.62 Methicillin resistant Staphylococcus aureus infection as the cause of diseases classified elsewhere; E66.01 Morbid (severe) obesity due to excess calories; E78.5 Hyperlipidemia, unspecified; I10 Essential (primary) hypertension; F31.9 Bipolar disorder, unspecified; Z68.36 Body mass index [BMI] 36.0-36.9, adult; Z79.4 Long term (current) use of insulin ==

== ENCOUNTER → 2020-08-28 | Outpatient (CLI) | payer OTHER | LOC: HYPER 12:26 | PROVIDERS: ATTEND Emergency Medicine | DX: E11.621 Type 2 diabetes mellitus with foot ulcer (principal); L97.512 Non-pressure chronic ulcer of other part of right foot with fat layer exposed; L97.522 Non-pressure chronic ulcer of other part of left foot with fat layer exposed; L84 Corns and callosities; A49.02 Methicillin resistant Staphylococcus aureus infection, unspecified site; E66.01 Morbid (severe) obesity due to excess calories; E78.5 Hyperlipidemia, unspecified; I10 Essential (primary) hypertension; F31.9 Bipolar disorder, unspecified; Z68.36 Body mass index [BMI] 36.0-36.9, adult; Z79.4 Long term (current) use of insulin ==

== ENCOUNTER → 2020-09-20 | Outpatient (CLI) | payer OTHER | LOC: HYPER 14:16 | PROVIDERS: ATTEND Emergency Medicine | DX: E11.621 Type 2 diabetes mellitus with foot ulcer (principal); L97.512 Non-pressure chronic ulcer of other part of right foot with fat layer exposed; L97.522 Non-pressure chronic ulcer of other part of left foot with fat layer exposed; L84 Corns and callosities; A49.02 Methicillin resistant Staphylococcus aureus infection, unspecified site; E66.01 Morbid (severe) obesity due to excess calories; E78.5 Hyperlipidemia, unspecified; I10 Essential (primary) hypertension; F31.9 Bipolar disorder, unspecified; Z68.36 Body mass index [BMI] 36.0-36.9, adult; Z79.4 Long term (current) use of insulin ==

== ENCOUNTER → 2020-10-10 | Outpatient (CLI) | payer OTHER ==
[~2020-10-10] MED LIST changes: +CUBICIN500 MG IV
== END ==
LOC: HYPER 13:42
PROVIDERS: ATTEND Emergency Medicine
DX: T87.89 Other complications of amputation stump (principal); E11.621 Type 2 diabetes mellitus with foot ulcer; L97.512 Non-pressure chronic ulcer of other part of right foot with fat layer exposed; L97.522 Non-pressure chronic ulcer of other part of left foot with fat layer exposed; B95.62 Methicillin resistant Staphylococcus aureus infection as the cause of diseases classified elsewhere; E11.69 Type 2 diabetes mellitus with other specified complication; M86.171 Other acute osteomyelitis, right ankle and foot; E11.42 Type 2 diabetes mellitus with diabetic polyneuropathy; L84 Corns and callosities; E78.5 Hyperlipidemia, unspecified; I10 Essential (primary) hypertension; E66.9 Obesity, unspecified; F31.9 Bipolar disorder, unspecified; Z68.36 Body mass index [BMI] 36.0-36.9, adult; Z79.4 Long term (current) use of insulin; Z79.899 Other long term (current) drug therapy; Y83.5 Amputation of limb(s) as the cause of abnormal reaction of the patient, or of later complication, without mention of misadventure at the time of the procedure

== ENCOUNTER → 2020-10-26 | Outpatient (CLI) | payer OTHER | LOC: HYPER 09:16 | PROVIDERS: ATTEND Emergency Medicine | DX: T87.81 Dehiscence of amputation stump (principal); E11.621 Type 2 diabetes mellitus with foot ulcer; L97.512 Non-pressure chronic ulcer of other part of right foot with fat layer exposed; L97.522 Non-pressure chronic ulcer of other part of left foot with fat layer exposed; B95.62 Methicillin resistant Staphylococcus aureus infection as the cause of diseases classified elsewhere; E11.42 Type 2 diabetes mellitus with diabetic polyneuropathy; E78.5 Hyperlipidemia, unspecified; I10 Essential (primary) hypertension; L84 Corns and callosities; E66.9 Obesity, unspecified; F31.9 Bipolar disorder, unspecified; Z68.36 Body mass index [BMI] 36.0-36.9, adult; Z79.4 Long term (current) use of insulin; Z79.899 Other long term (current) drug therapy; Y83.5 Amputation of limb(s) as the cause of abnormal reaction of the patient, or of later complication, without mention of misadventure at the time of the procedure ==

== ENCOUNTER → 2020-11-09 | Outpatient (CLI) | payer OTHER | LOC: HYPER 09:48 | PROVIDERS: ATTEND Emergency Medicine | DX: T87.81 Dehiscence of amputation stump (principal); E11.621 Type 2 diabetes mellitus with foot ulcer; L97.512 Non-pressure chronic ulcer of other part of right foot with fat layer exposed; L97.522 Non-pressure chronic ulcer of other part of left foot with fat layer exposed; L84 Corns and callosities; E11.42 Type 2 diabetes mellitus with diabetic polyneuropathy; E11.69 Type 2 diabetes mellitus with other specified complication; M86.171 Other acute osteomyelitis, right ankle and foot; E66.01 Morbid (severe) obesity due to excess calories; E78.5 Hyperlipidemia, unspecified; A49.02 Methicillin resistant Staphylococcus aureus infection, unspecified site; I10 Essential (primary) hypertension; F31.9 Bipolar disorder, unspecified; Z68.36 Body mass index [BMI] 36.0-36.9, adult; Z79.4 Long term (current) use of insulin; Y83.5 Amputation of limb(s) as the cause of abnormal reaction of the patient, or of later complication, without mention of misadventure at the time of the procedure ==

== ENCOUNTER 2020-11-16 13:03 | Inpatient (IN) | payer OTHER ==
[~2020-11-16] VITALS: Ht 182.9 cm; Wt 133.8 kg
--- NOTE | ~2020-11-16 | EMS ---
[address] [address] EMS Patient Care Report Name: LAURA MEMBRENO Room #: REG Blank#: [id number] Admission: 11/16/20 Attend Phys: Discharge: Date of : [birth year] Report #: [id number] THIS REPORT FOR: //name// Report Transmitted: 11/16/2020 14:50 EMS Care Summary [facility] Incident [id number] @ 11/16/2020 12:11 Incident Location [address] [place] [address] Patient LAURA MEMBRENO Male, 40 Years 1980 Patient Address [address] [place] [address] Patient History Diabetes,Amputee,Methicillin-resistant Staphylococcus aureus (MRSA), Patient Allergies No known allergies, Patient Medications Humalog, Vancomycin, Chief Complaint Nausea/Vomiting, Dizziness Disposition Transported No Lights/[place] Dispatch Reason Sick Person Transported To [facility] Narrative Dispatched mutual aid to [facility]. Upon arrival M3 was directed to the patient by [facility] [employer]. The 40 year old male patient was AO x4, GCS 15, with moderate Tachypnea, appeared mildly pale, and was very warm to the touch. The patient reported a Chief Complaint of N/V and dizziness. [address] [address] EMS Patient Care Report Name: LAURA MEMBRENO Room #: REG NOAM Parson#: [id number] Admission: 11/16/20 Attend Phys: Discharge: Date of : [birth year] Report #: [id number] The patient reported that he had felt "off" the previous evening but had been nauseated and vomiting for about the last six hours. The patient stated a Hx of diabetes, and a MRSA infection for the last several months. [place] had obtained a blood sugar of 121. The patient stated that he had a toe amputated off of his right foot, which was bandaged, and a pressure ulcer on his left big toe, which was also bandaged. The patient stated he had been receiving antibiotic treatments at home through a PICC line which was located on the medial-posterior of the right bicep area. The patient stated a desire to be transported to [facility]. The patient was assisted off of his bed into a standing position. He was able to walk a short distance to the stretcher, and was secured on the stretcher inside the ambulance. Transport was initiated. During transport IV access was obtained and zofran administered for nausea. Normal Saline was also initiated for sepsis. A stroke scale was assessed and was negative. Blood pressure remained stable, the patient's heart rated remained tachycardic, and the patient continued to be tachypneic. The patient stated however, that he felt less dizzy and nauseated after interventions. Upon arrival to [facility] the patient was escorted on the stretcher to ED 2 and [facility] [place] via verbal report. Initial Vitals @12:34P: 129,R: 26,BP: 133/82,Pain: 6/10,GCS: 15,CO: 2,SpO2: 95,Revised Trauma: 12, @12:44P: 133,R: 26,BP: 144/86,GCS: 15,CO: 2,SpO2: 95,Revised Trauma: 12, Assessments @12:25MENTAL:No Abnormalities,SKIN:Hot,Pale,HEENT:Head/Face: No Abnormalities,Eyes: No Abnormalities,Neck/Airway: No Abnormalities,LUNG SOUNDS:General: Vomiting,General: Nausea,Left Upper: No Abnormalities,Right Upper: No Abnormalities,Left Lower: No Abnormalities,Right Lower: No Abnormalities,ABDOMEN:General: Vomiting,General: Nausea,Left Upper: No Abnormalities,Right Upper: No Abnormalities,Left Lower: No Abnormalities,Right Lower: No Abnormalities,PELVIS//GI:No Abnormalities,EXTREMITIES:Right Arm: Other,Left Leg: Other,Right Leg: Other,Left Arm: No Abnormalities,PULSE:Radial: 2+ Normal,NEURO:No Abnormalities,@12:50MENTAL:No Abnormalities,SKIN:Hot,Pale,HEENT:Head/Face: No Abnormalities,Eyes: No Abnormalities,Neck/Airway: No Abnormalities,LUNG SOUNDS:General: Vomiting,General: Nausea,Left Upper: No Abnormalities,Right Upper: No Abnormalities,Left Lower: No Abnormalities,Right Lower: No Abnormalities,ABDOMEN:General: Vomiting,General: Nausea,Left Upper: No Abnormalities,Right Upper: No Abnormalities,Left Lower: No Abnormalities,Right Lower: No Abnormalities,PELVIS//GI:EXTREMITIES:Right Arm: Other,Left Leg: Other,Right Leg: Other,Left Arm: No Abnormalities,PULSE:Radial: 2+ Normal,NEURO:No Abnormalities, [address] [address] EMS Patient Care Report Name: VICKIEJODYLAURA Room #: REG Blank#: [id number] Admission: 06/03/21 Attend Phys: Discharge: Date of : 76 Report #: [id number] Impression Sepsis/Septicemia Procedures @12:25ALS AssessmentResponse: UnchangedSucceeded@12:50ALS AssessmentResponse: UnchangedSucceeded@12:40Normal Saline (.9% NaCl) 200cc (20 ga) Site: Forearm-LeftResponse: UnchangedSucceeded@12:42Zofran - 4 Milligrams (mg) - Intravenous (IV)Response: Improved Timeline 12:10,Call Received 12:10,Psap Call 12:11,Dispatched 12:13,En Route 12:22,On Scene 12:23,At Patient 12:25,ALS Assessment,Response: UnchangedSucceeded, 12:34,BP: 133/82 M,PULSE: 129,RR: 26 R,SPO2: 95 Ox,ETCO2: ,BG: ,PAIN: 6,GCS: 15, 12:35,Depart Scene 12:40,Normal Saline (.9% NaCl) 200cc 20 ga Site: Forearm-Left,Response: UnchangedSucceeded, 12:42,Zofran - 4 Milligrams (mg) - Intravenous (IV),Response: Improved 12:44,BP: 144/86 M,PULSE: 133,RR: 26 R,SPO2: 95 Ox,ETCO2: ,BG: ,PAIN: ,GCS: 15, 12:50,ALS Assessment,Response: UnchangedSucceeded, 12:55,At Destination 13:32,Call Closed Disclaimer v1.1 Copyright 2020 [employer] This EMS Care Summary contains data elements from the applicable legal record (which may be displayed differently). It is designed to provide pertinent information for the following purposes: continuity of care, clinical quality, and state data reporting. The complete legal record is available to ED staff and administrators of the receiving hospital in [employer]'s Patient Tracker. All data is provided "as is."
[~2020-11-16 13:03] MED LIST changes: +BUPROPION XL450 MG PO; +ESKALITH CR450 MG PO; -ESKALITH300 MG PO; -WELLBUTRIN SR150 MG PO
[2020-11-16 13:10] VITALS: BP 186/83
[2020-11-16 13:25] LABS: ABSOLUTE NEUTROPHILS 5.9 thou/uL (1.4-8.2); BASOPHILS 0.4 % (0.0-2.0); EOSINOPHILS 1.1 % (0.0-3.0); HEMATOCRIT 25.8 % (42.0-52.0); HEMOGLOBIN 8.6 gm/dL (14.0-18.0); LYMPHOCYTES 9.5 % (24.0-44.0); MCH 29.4 pg (26.0-34.0); MCHC 33.5 g/dL (28.0-37.0); MCV 87.9 fL (80.0-100.0); MONOCYTES 1.8 % (1.0-8.0); PLATELET COUNT 201 thou/uL (150-400); POLYS 87.2 % (36.0-66.0); RBC 2.94 mil/uL (4.50-6.00); RDW 16.1 % (10.5-14.5); WBC 6.7 thou/uL (4.0-11.0)
[2020-11-16 13:35] LABS: URINE BILIRUBIN NEGATIVE (Negative); URINE BLOOD NEGATIVE (Negative); URINE CLARITY CLEAR; URINE COLOR YELLOW; URINE GLUCOSE-RANDOM* NEGATIVE (Negative); URINE KETONES NEGATIVE (Negative); URINE LEUKOCYTES-REFLEX NEGATIVE (Negative); URINE NITRITE-REFLEX NEGATIVE (Negative); URINE PROTEIN (DIPSTICK) 1+ (Negative); URINE UROBILINOGEN 0.2 E.U./dl (0.2-1.0)
[2020-11-16 13:42] LABS: ANION GAP 12 mmol/L (7-16); BUN 13 mg/dL (7-18); CALCIUM 7.7 mg/dL (8.5-10.1); CHLORIDE 108 mmol/L (98-107); CO2 22 mmol/L (21-32); CREATININE 0.9 mg/dL (0.7-1.3); GLUCOSE 70 mg/dL (74-106); POTASSIUM 3.3 mmol/L (3.5-5.1); SODIUM 142 mmol/L (136-145)
[2020-11-16 13:53] LABS: LIPASE 36 U/L (73-393); SGOT 23 U/L (15-37); SGPT 33 U/L (16-63); TOTAL BILIRUBIN 0.5 mg/dL (0.2-1.0); TOTAL PROTEIN 6.8 g/dL (6.4-8.2); TROPONIN-I <0.06 ng/mL (<0.06)
[2020-11-16 14:02] LABS: BACTERIA-REFLEX None Seen /HPF (None Seen); CASTS None Seen /LPF (None Seen); CRYSTALS None Seen /LPF (None Seen); SQUAMOUS None Seen /LPF (0-3); URINE RBC None Seen /HPF (NONE SEEN); URINE WBC-REFLEX 0-5 Rare /HPF (0-5)
[2020-11-16 15:56] VITALS: BP 158/90
--- NOTE | 2020-11-16 16:04 | NUR ---
PICC LINE PULLED BY TOMASZ ANTUNEZ. TIP INTACT, PRESSURE DRESSING IN PLACE
--- NOTE | 2020-11-16 16:19 | EKG ---
[facility] [place] [address] ELECTROCARDIOGRAM REPORT Name: LAURA MEMBRENO Room #: REG [facility]#: [id number] Admission: 11/16/20 Attend Phys: Discharge: Date of : 76 Report #: [id number] [facility] ED Test Date: 2020-11-16 Test Time: 14:05:21 Pat Name: LAURA MEMBRENO Department: Room: Gender: M General Adjuster: : 1980 Requested By: Piper Heredia Order Number: [id number] MD: Justino Donahue Measurements Intervals [employer] Rate: 122 P: 90 UT: 136 QRS: -21 QRSD: 106 T: 4 QT: 328 QTc: 468 Interpretive Statements Sinus tachycardia Borderline left axis deviation Low voltage, precordial leads Abnormal R-wave progression, late transition Compared to ECG 03/12/2020 06:08:24 Heart rate has increased Electronically Signed On 11-16-2020 16:19:16 CDT by Justino Donahue [email or web address] <ELECTRONICALLY SIGNED> By: Justino Donahue MD, [facility] 11/16/20 1619 1405 04 Justino Donahue MD, FACC /EPI
[2020-11-16 16:32] VITALS: BP 165/82
[2020-11-16 16:40] VITALS: BP 163/67
--- NOTE | 2020-11-16 18:55 | NUR ---
REceived pt from the ED at 4:40 pm. alert and oriented x 4. BP elevated, med req initiated, awaiting for the complete med list. Admission requirements completed, pending consents to be siged as requested by the pt, endorsed to the night nurse. POC followed with no signs or verbalizations of distress noted.
[2020-11-16 20:26] VITALS: BP 144/56
--- NOTE | 2020-11-17 03:41 | NUR ---
ASSUMED CARE OF PT AT SHIFT CHANGE. PT IS AOX4 AND LETS NEEDS BE KNOWN. PT IS UP AD TAHIR. ASSESSMENT CHARTED. PT REPORTED SOME HEADACHE; PRNS PROVIDED. ABX CONTINUED. PT DENED NAUSEA OR SOA. ASSESSMENT CHARTED. PT WAS ABLE TO SLEEP PART OF THE SHIFT. VSS AND NO S/S OF ACUTE DISTRESS. WILL CONTINUE TO MONITOR.
[2020-11-17 06:40] LABS: AMP/METHAMP Negative (Negative); BARBITURATES Negative (Negative); BENZODIAZEPINES Negative (Negative); COCAINE Negative (Negative); METHADONE Negative (Negative); OPIATES Negative (Negative); PCP Negative (Negative)
[2020-11-17 07:31] VITALS: BP 145/75
--- NOTE | 2020-11-17 10:51 | NUR ---
Initial nutrition screen for possible wt loss 2-13 lb. Admit with emesis, fever, infection. Hx DM, toe amputation for diabetic foot wound. Wts are actually fairly stable from past trends. Will add carb control to current diet order. pt usually eats well during past hospitalizations. low nutrition risk
--- NOTE | 2020-11-17 14:49 | NUR ---
PT ADMITTED RELATED TO [facility]. CM REVIEWED CHART AND SPOKE WITH CARE TEAM. CM MET WITH PT AT BEDSIDE THIS DAY. PT APPEARED TO BE A&OX4. CM ROLE INTRODUCED. PT INDICATED HE LIVES IN A HOUSE WITH HIS AND DTR. PT INDICATED 2 STEPS TO ENTER BUT THAT THEY HAVE A RAMP. PT HAS DISCHARGED HOME RECENTLY ON IV DAPTO THROUGH [facility] WITH [facility]. PT HAD BEEN RECIEVING SERVICES UP UNTIL DAY PRIOR TO ADMISSION. PT HAD PICC REMOVED THIS ADMISSION. 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 PT INDICATED HE PLANS TO RETURN HOME TOMORROW TO SELF CARE. CM FOLLOWING SHOULD ANY DC NEEDS ARISE.
[2020-11-17 16:23] VITALS: BP 145/83
--- NOTE | 2020-11-17 20:18 | NUR ---
Assumed pt this am VS stable. independent of all adl's and steady on bis gait. Blood sugar monitored, medications given as per emar. Diet and medications are tolerated well. No nauseam vomiting and fever noted for this shift. POC followed with nos signs or verbalizations of distress noted. Pt is hopefull that he will go home tomorrow d/t over all feeling of wellness. was at the bedside this am. Endorsed tot he night nurse.
[2020-11-17 20:48] VITALS: BP 133/67
--- NOTE | 2020-11-18 05:17 | NUR ---
[facility] when checked on during frequent rounds. He offers no c/o pain or discomfort. Continues on iv antibiotics.
[2020-11-18 07:32] VITALS: BP 140/78
[2020-11-18 12:46] LABS: HEMATOCRIT 38.4 % (42.0-52.0); MCH 29.1 pg (26.0-34.0); MCHC 33.4 g/dL (28.0-37.0); MCV 87.3 fL (80.0-100.0); RBC 4.4 mil/uL (4.50-6.00); WBC 8.5 thou/uL (4.0-11.0)
[2020-11-18 12:54] LABS: HEMOGLOBIN 12.8 gm/dL (14.0-18.0)
[2020-11-18 15:37] VITALS: BP 153/76
--- NOTE | 2020-11-18 18:42 | NUR ---
ASSUMED CARE OF PATIENT AT SHIFT CHANGE. ASSESSMENT CHARTED. MEDS ADMINISTERED PER EMAR. VSS. PATIENT IS A&OX4 AND MAKES NEEDS KNOWN; ABLE TO GET UP INDEPENDENTLY W STEADY GAIT. PATIENT DOES COMPLAIN OF A HEADACHE; PRN TYLENOL ADMINISTERED AND PROVIDED SOME RELIEF. PATIENT DRANK 3L + OF FLUIDS; PROVIDER NOTIFIED AND D/C'D IV FLUIDS. DR. EMMANUEL CONSULTED; HERE NOW; NO NEW ORDERS. PATIENT STILL HOPING TO DISCHARGE. ON VANCO ABX W NO ISSUES. SPOUSE AT BEDSIDE. WILL ENDORSE TO ISABELLA TOLBERT
--- NOTE | 2020-11-18 19:54 | NUR ---
PATIENT WANTING TO LEAVE AMA; THIS NURSE EDUCATED HIM ON RISKS (FINANCIAL) OF LEAVING AMA. PATIENT WAS ANTICIPATING DISCHARGE. DR. EMMANUEL STATED "ITS FINE FROM MY SYTANDPOINT" HOWEVER NO DISCHARGE ORDERS IN. EMPLOYEE BENEFITS MANAGER ELECTION CLERK AND MOLDER FEEDER NOTIFIED. WILL START DISCHARGE FROM NURSIONG STANDPOINT. EMPLOYEE BENEFITS MANAGER ATTEMPTED TO CONTACT DR. CARO; WAITING TO HEAR BACK. ENDORSED TO CHARGE NURSE
[2020-11-18 20:00] VITALS: BP 153/76
--- NOTE | 2020-11-18 21:00 | NUR ---
Elvie FISCAL SPECIALIST here and spoke with patient and initiated discharge.
[2020-11-18] MEDS ORDERED: ZYVOX600 MG PO (21:17)
--- NOTE | 2020-11-18 21:40 | NUR ---
Patient discharged to home and discharge papers reviewed and signed with patient. Pt. did not want his HS meds.
== END 2020-11-18 21:40 | disposition home or self-care (01) | DRG 315 ==
LOC: ER 13:03 → 4W 16:24 → EROBS 16:24 → 4W 16:25
PROVIDERS: Emergency Medicine; Physician Assistant; ADMIT Hospitalist; ATTEND Hospitalist
PROC: 02PYX3Z Removal of Infusion Device from Great Vessel, External Approach (ICD-10-PCS; principal; 2020-11-16)
DX: T80.211A Bloodstream infection due to central venous catheter, initial encounter (principal); Z68.41 Body mass index [BMI] 40.0-44.9, adult; E11.42 Type 2 diabetes mellitus with diabetic polyneuropathy; F31.9 Bipolar disorder, unspecified; E78.5 Hyperlipidemia, unspecified; I10 Essential (primary) hypertension; Y83.8 Other surgical procedures as the cause of abnormal reaction of the patient, or of later complication, without mention of misadventure at the time of the procedure; Z20.822 Contact with and (suspected) exposure to COVID-19; Z79.4 Long term (current) use of insulin; Z79.899 Other long term (current) drug therapy; Y92.89 Other specified places as the place of occurrence of the external cause; Z89.411 Acquired absence of right great toe; E66.01 Morbid (severe) obesity due to excess calories
CPT/HCPCS: 10040

== ENCOUNTER → 2020-11-23 | Outpatient (CLI) | payer OTHER | LOC: HYPER 09:57 | PROVIDERS: ATTEND Emergency Medicine Emergency Medical Services | DX: T87.81 Dehiscence of amputation stump (principal); E11.621 Type 2 diabetes mellitus with foot ulcer; L97.512 Non-pressure chronic ulcer of other part of right foot with fat layer exposed; L97.522 Non-pressure chronic ulcer of other part of left foot with fat layer exposed; L84 Corns and callosities; E11.42 Type 2 diabetes mellitus with diabetic polyneuropathy; E11.69 Type 2 diabetes mellitus with other specified complication; M86.171 Other acute osteomyelitis, right ankle and foot; E66.01 Morbid (severe) obesity due to excess calories; E78.5 Hyperlipidemia, unspecified; A49.02 Methicillin resistant Staphylococcus aureus infection, unspecified site; I10 Essential (primary) hypertension; F31.9 Bipolar disorder, unspecified; Z68.36 Body mass index [BMI] 36.0-36.9, adult; Z79.4 Long term (current) use of insulin; Y83.5 Amputation of limb(s) as the cause of abnormal reaction of the patient, or of later complication, without mention of misadventure at the time of the procedure ==

== ENCOUNTER → 2020-12-07 | Outpatient (CLI) | payer OTHER | LOC: HYPER 09:29 | PROVIDERS: ATTEND Emergency Medicine | DX: T87.81 Dehiscence of amputation stump (principal); E11.621 Type 2 diabetes mellitus with foot ulcer; L97.512 Non-pressure chronic ulcer of other part of right foot with fat layer exposed; L97.522 Non-pressure chronic ulcer of other part of left foot with fat layer exposed; E11.622 Type 2 diabetes mellitus with other skin ulcer; L97.322 Non-pressure chronic ulcer of left ankle with fat layer exposed; L84 Corns and callosities; E11.42 Type 2 diabetes mellitus with diabetic polyneuropathy; E11.69 Type 2 diabetes mellitus with other specified complication; M86.171 Other acute osteomyelitis, right ankle and foot; E66.01 Morbid (severe) obesity due to excess calories; E78.5 Hyperlipidemia, unspecified; A49.02 Methicillin resistant Staphylococcus aureus infection, unspecified site; I10 Essential (primary) hypertension; F31.9 Bipolar disorder, unspecified; Z68.36 Body mass index [BMI] 36.0-36.9, adult; Z79.4 Long term (current) use of insulin; Y83.5 Amputation of limb(s) as the cause of abnormal reaction of the patient, or of later complication, without mention of misadventure at the time of the procedure ==

== ENCOUNTER → 2020-12-28 | Outpatient (CLI) | payer OTHER | LOC: HYPER 09:12 | PROVIDERS: ATTEND Emergency Medicine | DX: T87.81 Dehiscence of amputation stump (principal); E11.621 Type 2 diabetes mellitus with foot ulcer; L97.512 Non-pressure chronic ulcer of other part of right foot with fat layer exposed; L97.522 Non-pressure chronic ulcer of other part of left foot with fat layer exposed; E11.622 Type 2 diabetes mellitus with other skin ulcer; L97.322 Non-pressure chronic ulcer of left ankle with fat layer exposed; L84 Corns and callosities; E11.42 Type 2 diabetes mellitus with diabetic polyneuropathy; E11.69 Type 2 diabetes mellitus with other specified complication; M86.171 Other acute osteomyelitis, right ankle and foot; E66.01 Morbid (severe) obesity due to excess calories; E78.5 Hyperlipidemia, unspecified; A49.02 Methicillin resistant Staphylococcus aureus infection, unspecified site; I10 Essential (primary) hypertension; F31.9 Bipolar disorder, unspecified; Z68.36 Body mass index [BMI] 36.0-36.9, adult; Z79.4 Long term (current) use of insulin; Y83.5 Amputation of limb(s) as the cause of abnormal reaction of the patient, or of later complication, without mention of misadventure at the time of the procedure ==

== ENCOUNTER → 2021-01-25 | Outpatient (CLI) | payer OTHER ==
[~2021-01-25] MED LIST changes: +ACETAMINOPHEN325 M1 PO; +CUBICIN500 MG IVPB; +JARDIANCE10 MG PO; +LISINOPRIL5 MG PO; +ONE-DAILY MULT1 EAC1 PO; +SULINDAC 150 M150 MG PO; +TRIBENZOR 20-51 EACH PO
== END ==
LOC: HYPER 09:48
PROVIDERS: ATTEND Emergency Medicine
DX: T87.81 Dehiscence of amputation stump (principal); E11.621 Type 2 diabetes mellitus with foot ulcer; L97.512 Non-pressure chronic ulcer of other part of right foot with fat layer exposed; L97.522 Non-pressure chronic ulcer of other part of left foot with fat layer exposed; L84 Corns and callosities; E11.42 Type 2 diabetes mellitus with diabetic polyneuropathy; E11.69 Type 2 diabetes mellitus with other specified complication; M86.171 Other acute osteomyelitis, right ankle and foot; E66.01 Morbid (severe) obesity due to excess calories; E78.5 Hyperlipidemia, unspecified; A49.02 Methicillin resistant Staphylococcus aureus infection, unspecified site; I10 Essential (primary) hypertension; F31.9 Bipolar disorder, unspecified; Z68.36 Body mass index [BMI] 36.0-36.9, adult; Z79.4 Long term (current) use of insulin; Y83.5 Amputation of limb(s) as the cause of abnormal reaction of the patient, or of later complication, without mention of misadventure at the time of the procedure

== ENCOUNTER 2021-01-26 06:33 | Inpatient (IN) | payer OTHER ==
[~2021-01-26] VITALS: Ht 182.9 cm; Wt 127.0 kg
[~2021-01-26 06:33] MED LIST changes: -ACETAMINOPHEN325 M1 PO; -CUBICIN500 MG IVPB; -LISINOPRIL5 MG PO
[2021-01-26 08:32] VITALS: BP 124/65
[2021-01-26 16:38] VITALS: BP 114/65
--- NOTE | 2021-01-26 16:54 | NUR ---
PATIENT ADMITTED TO THE FLOOR FROM PACU ABOUT 1400. SWEATING PERFUSELY AND HOT. O2 SAT 92%. 2L OF O2 APPLIED. PATIENT HAD NO COMPLAINTS OF PAIN. UP AD TAHIR WITH STANDBY ASSIST. FALL PRECAUTIONS IN PLACE. RIGHT FOOT DRESSING DRY AND INTACT. WILL CONTINUE TO MONITOR.
[2021-01-26 18:00] LABS: HEMATOCRIT 37.8 % (42.0-52.0); HEMOGLOBIN 12.7 gm/dL (14.0-18.0); MCH 28.5 pg (26.0-34.0); MCHC 33.6 g/dL (28.0-37.0); MCV 84.9 fL (80.0-100.0); RBC 4.45 mil/uL (4.50-6.00); RDW 15.6 % (10.5-14.5)
--- NOTE | 2021-01-26 18:01 | NUR ---
A #4F SINGLE LUMEN POWER PICC WAS PLACED PER POLICY AFTER A BEDSIDE TIMEOUT WAS COMPLETED. THE LINE WAS TRIMMED TO 47CM AND ADVANCED WITHOUT DIFFICULTY. THE LINE WAS CONFERMED USING SHERLOCK 3CG AT 3CM EXTERNAL
[2021-01-26 18:10] LABS: CALCIUM 8.5 mg/dL (8.5-10.1); CREATININE 1.3 mg/dL (0.7-1.3)
--- NOTE | 2021-01-26 18:23 | NUR ---
HOSPITALIST ORDERED PATIENT TO BE ON TELEMETRY. PATIENT WILL BE MOVED TO TELEMETRY UNIT. PATIENT ALSO IN ISOLATION FOR MRSA.
[2021-01-26 20:20] VITALS: BP 130/97
--- NOTE | 2021-01-27 00:45 | NUR ---
Pt transferred to room 456 @ around 0030 hrs. Pt in stable condition.
--- NOTE | 2021-01-27 06:33 | NUR ---
Pt. rested quietly during the night when checked on during frequent rounds. He offers no c/o pain. Dressing to right foot is dry and intact. Bed alarm is on.
[2021-01-27 07:31] LABS: HEMOGLOBIN 12.2 gm/dL (14.0-18.0); MCH 28.2 pg (26.0-34.0); MCV 85.2 fL (80.0-100.0); RBC 4.34 mil/uL (4.50-6.00); RDW 15.5 % (10.5-14.5); WBC 13.1 thou/uL (4.0-11.0)
[2021-01-27 07:40] VITALS: BP 143/74
[2021-01-27 07:45] LABS: CALCIUM 8.2 mg/dL (8.5-10.1); POTASSIUM 3.8 mmol/L (3.5-5.1)
[2021-01-27 16:30] VITALS: BP 143/69
[2021-01-27 19:54] VITALS: BP 150/59
--- NOTE | 2021-01-27 19:59 | NUR ---
Assumed pt care this am vs stable. No pain is noted. Diet and medications are well tolerated. Up ad gwendolyn, PICC line in place patent both ways. POC followed with no signs or verbalizations of distress, though pt mentioned that throat pain has dveloped when swallowing, MD advised no response endorsed to the night nurse.
--- NOTE | 2021-01-28 04:58 | HC ---
[facility] [place] [address] CONSULTATION Name: LAURA MEMBRENO Room #: 456-P ADM IN M.R.#: [id number] Admission: 01/26/21 Attend Phys: Debora Irene MD Discharge: Date of : 76 Report #: [id number] THIS REPORT FOR: cc: Parvez Vickers,Mika Jeong MD ~ DATE OF SERVICE: 01/27/2021 INFECTIOUS DISEASE CONSULTATION ATTENDING PHYSICIAN: Dr. Irene. REASON FOR EVALUATION: Osteomyelitis involving the first metatarsal head on the right. HISTORY OF PRESENT ILLNESS: Chart reviewed and the patient examined. This is a 40-year-old gentleman with uncontrolled diabetes mellitus, which has been complicated by recurrent issues involving his feet with ulcers. He has had previous history of osteomyelitis with Charcot changes, who was seen in November and underwent prolonged course of parenteral therapy. He had culture proven Staph aureus from the bone in September; however, due to dehiscence of the toe amputation site, he had chronic draining sinus. Further evaluation including MRI suggested probable osteomyelitis involving the metatarsal head. His admitted purpose is undergoing resection of that site as well as the sesamoids. He is seen postop day #1. Empirically started on daptomycin. He notes he has degree of peripheral neuropathy. He does have ongoing pain, although not severe. Denies systemic illness in terms of fevers, although recording suggesting was as high as 101 earlier on the admission. He states his appetite has been satisfactory. No pulmonary related complaints. ALLERGIES: None known. MEDICATIONS: As described above, insulin, daptomycin, alteplase, acetaminophen, ondansetron as needed. PAST MEDICAL HISTORY: Diabetes mellitus type 2, insulin-dependent; bipolar disease; peripheral neuropathy; high cholesterol; hypertension; previous right great toe amputation. SOCIAL HISTORY: Nonsmoker. No illicit drug use. Occasional ethanol. FAMILY HISTORY: Noncontributory. REVIEW OF SYSTEMS: Otherwise, unremarkable. PHYSICAL EXAMINATION: [facility] [address] [place] [address] CONSULTATION Name: LAURA MEMBRENO Room #: 456-[facility]#: [id number] Admission: 01/26/21 Attend Phys: Debora Irene MD Discharge: Date of : 76 Report #: [id number] GENERAL: Appears somewhat chronically ill and undernourished. He is mildly encephalopathic, in moderate distress. VITAL SIGNS: Temperature 99.4, his T-max yesterday morning 101, pulse 94, respirations 18, blood pressure is 143/69. SKIN: Warm, dry, no rashes. HEENT: Normocephalic. Extraocular muscles intact. NECK: Supple. LUNGS: Somewhat diminished breath sounds. HEART: Regular, borderline tachycardic. I do not appreciate a murmur. ABDOMEN: Obese, somewhat firm, nontender. EXTREMITIES: Right distal lower extremity has a surgical dressing in place with compression. It is clear he has got Charcot changes. The leg appears to be free of any cellulitic process. GENITOURINARY: Deferred. RECTAL: Deferred. LABORATORY DATA: His culture from the operative site specific the first metatarsal bone showed no growth thus far. The tissue as well shows no growth. Electrolytes: Sodium 138, potassium 3.8, chloride 103, bicarbonate is 24, anion gap of 11, BUN and creatinine 18 and 1.0. CBC: White count 13.1, H and H is 12.2 and 37.0, platelets of 303. Lactic acid of 1.6. Reviewed operative report. ASSESSMENT AND PLAN: Osteomyelitis involving the metatarsal head of the right great toe, previous site of toe amputation, the patient with diabetes mellitus that has apparently not been well controlled, recurrent issues of ulcers. Continue as planned with daptomycin. He has a PICC line in place. Wound care orders as prescribed. He will follow up with Dr. Acharya in the office within 1 to 2 weeks. <ELECTRONICALLY SIGNED> By: Mika Dodge MD 01/28/21 0458 [id number] Mika Dodge MD /nt
--- NOTE | 2021-01-28 05:37 | NUR ---
Pt. rested quietly during the night when checked on during frequent rounds. He did c/o a sore throat and tylenol given po (see emar) with some relief noted.
[2021-01-28 08:13] VITALS: BP 150/59
--- NOTE | 2021-01-28 12:10 | NUR ---
PT VERY ANXIOUS TO LEAVE FACILITY. HIS FATHER WAS AIRFLIGHTED TO A HOSPITAL WITH PNEUMONIA AND MOTHER IS A PARAPLEGIC ALONE AT HOME WITH 3 DOGS. PT SIGNED AMA PAPERS AND I PAGED DR. FARMER 3 TIMES. CALLED HOUSE SUPERVISIOR AND SHE WAS ABLE TO PUT ME IN TOUCH WITH DR. FARMER WHO DECIDED SHE WOULD DISCHARGE PT TODAY DUE TO FACT HE DID RECEIVE IV ANTIBIOTICS ALREADY TODAY. PT STATED THEY COULD NOT WORK WITH HIM DUE TO HIS NOT HAVE HIS BOOT HERE. DCED IV AND DISCHARGED PT.
[2021-01-28] MEDS ORDERED: ACETAMINOPHEN325 M1 PO (12:11)
[2021-01-28] MEDS ORDERED: CUBICIN500 MG IVPB (12:11)
[2021-01-28] MEDS ORDERED: LISINOPRIL5 MG PO (12:15)
[2021-01-28 12:24] VITALS: BP 150/59
--- NOTE | 2021-01-29 08:56 | NUR ---
PATIENT DISCHARGED PRIOR TO OT EVALUATION. BEING INITIATED
--- NOTE | 2021-01-29 18:06 | PATH ---
[facility] [address] [place] [address] PATHOLOGY RPT PROCEDURE Name: LAURA DAVIES Ryan Room #: 456-P [facility] IN M.R.#: [id number] Admission: 01/26/21 Date of : 76 Discharge: 01/28/21 Report #: [id number] Path Case #: [id number] [facility] Accession Number: [id number] . 01 Material submitted: . PART A: METATARSAL - RIGHT 1ST METATARSAL HEAD AND SESMOID BONE AND SKIN ULCER. Modifiers: right, first, head PART B: METATARSAL - RIGHT 1ST METATARSAL BONE MARGIN. Modifiers: right, first . 01 Clinical history: . METATARSAL HEAD RESECTION RIGHT FOOT OSTEOMYELITIS OF FIRST METATARSAL . 02 Diagnosis: A. Bone, right first metatarsal head and sesamoid bone and skin ulcer, amputation: - Skin and subcutaneous tissue with ulceration, fibrinoid degeneration, and marked acute inflammation. - Underlying bone with acute osteomyelitis. - Inked margin showing acute inflammation. . B. Bone, right first metatarsal bone margin, resection: - Fragments of viable bone without acute inflammation. (IUV:pit; 01/29/2021) QTP 01/29/2021 1535 Local . 02 Electronically signed: . Jeannie Wan MD, Pathologist NPI- [id number] . 01 Gross description: . A. The specimen is received in formalin, labeled "Laura Davies, right first metatarsal head and sesamoid bone and skin ulcer". Received is an ellipse is a segment of bone measuring 2.7 x 2.6 x 2.2 cm in greatest dimensions, consistent with metatarsal head. One margin is blunt in appearance, consistent with transection, and is inked black. The opposite margin is smooth to irregular in contour, consistent with transection. A full-thickness longitudinal cross-section is bisected and submitted in cassettes A1 and A2, following decalcification. Also received within the specimen container is a segment of pale gordillo bone with attached soft tissue, consistent with sesamoid bone, measuring 2.8 x 2.3 x 0.7 cm in greatest dimensions. The disarticulated margin is inked black. A full thickness cross-section is submitted in cassette A3, following decalcification. Also received within the specimen container is an irregular excision of skin measuring 2.8 x 0.8 x 1.2 cm in greatest mentions. The epidermal surface displays an ill-defined, [place] [address] PATHOLOGY RPT PROCEDURE Name: LAURA DAVIES Room #: 456-P DIS IN M.R.#: [id number] Admission: 01/26/21 Date of : 76 Discharge: 01/28/21 Report #: [id number] Path Case #: [id number] contour and pale gordillo lesion measuring 0.5 x 0.4 cm. The lesion is submitted entirely in cassette A4. . B. The specimen is received in formalin, labeled "Laura Davies, right first metatarsal bone margin". Received is a segment of bone measuring 2.4 x 1.7 x 0.5 cm in greatest dimensions with a circular defect in the center measuring 0.7 x 0.6 cm. Both margins are blunt in appearance, consistent with transection. One margin is differentially inked black. The specimen is serially sectioned and entirely submitted in cassette B1, following decalcification. (CAA; 01/26/2021) QA/QA 01/26/2021 1644 Local . 02 Pathologist provided ICD-10: L97.519, M86.171, L98.9 . 02 CPT . 904452, 163854, 359241, 294742 Specimen Comment: A courtesy copy of this report has been sent to [phone], [phone] Specimen Comment: [phone], Specimen Comment: Report sent to / DR LAL Specimen Comment: Report sent to Performed at: [address] [facility] [address], [place] [id number] MD Andrea Broderick MD Phone: [phone] Performed at: [address] [facility] [address] [id number] MD Jeannie Wan MD Phone: [phone]
== END 2021-01-28 14:35 | disposition home or self-care (01) | DRG 503 ==
LOC: OR 06:33 → TBA 06:33 → OR 12:10 → 4S 15:31 → 4W 01-27 01:00
PROVIDERS: ADMIT Hospitalist; ATTEND Hospitalist
DX: T87.43 Infection of amputation stump, right lower extremity (principal); A41.9 Sepsis, unspecified organism; M86.8X7 Other osteomyelitis, ankle and foot; E11.69 Type 2 diabetes mellitus with other specified complication; E11.42 Type 2 diabetes mellitus with diabetic polyneuropathy; E78.00 Pure hypercholesterolemia, unspecified; I10 Essential (primary) hypertension; E11.621 Type 2 diabetes mellitus with foot ulcer; Y83.8 Other surgical procedures as the cause of abnormal reaction of the patient, or of later complication, without mention of misadventure at the time of the procedure; Z20.822 Contact with and (suspected) exposure to COVID-19; Z89.411 Acquired absence of right great toe; Z72.89 Other problems related to lifestyle; Y92.89 Other specified places as the place of occurrence of the external cause
CPT/HCPCS: 10047; 10102; 27000; 50010; 50101; 50386; 50951; 56527; 57091; 57178; 62110; 62900; 70005

== ENCOUNTER → 2021-02-13 | Outpatient (CLI) | payer OTHER ==
[~2021-02-13] MED LIST changes: +ACETAMINOPHEN325 M1 PO; +CUBICIN500 MG IVPB; +LISINOPRIL5 MG PO
== END ==
LOC: HYPER 02-08 09:36
PROVIDERS: ATTEND Emergency Medicine
DX: T87.81 Dehiscence of amputation stump (principal); E11.621 Type 2 diabetes mellitus with foot ulcer; L97.512 Non-pressure chronic ulcer of other part of right foot with fat layer exposed; L97.522 Non-pressure chronic ulcer of other part of left foot with fat layer exposed; L84 Corns and callosities; E11.42 Type 2 diabetes mellitus with diabetic polyneuropathy; E11.69 Type 2 diabetes mellitus with other specified complication; M86.171 Other acute osteomyelitis, right ankle and foot; E66.01 Morbid (severe) obesity due to excess calories; E78.5 Hyperlipidemia, unspecified; A49.02 Methicillin resistant Staphylococcus aureus infection, unspecified site; I10 Essential (primary) hypertension; F31.9 Bipolar disorder, unspecified; Z68.36 Body mass index [BMI] 36.0-36.9, adult; Z79.4 Long term (current) use of insulin; Y83.5 Amputation of limb(s) as the cause of abnormal reaction of the patient, or of later complication, without mention of misadventure at the time of the procedure

== ENCOUNTER → 2021-02-27 | Outpatient (CLI) | payer OTHER | LOC: HYPER 08:26 | PROVIDERS: ATTEND Emergency Medicine | DX: E11.621 Type 2 diabetes mellitus with foot ulcer (principal); L97.512 Non-pressure chronic ulcer of other part of right foot with fat layer exposed; L97.522 Non-pressure chronic ulcer of other part of left foot with fat layer exposed; B95.62 Methicillin resistant Staphylococcus aureus infection as the cause of diseases classified elsewhere; E11.40 Type 2 diabetes mellitus with diabetic neuropathy, unspecified; L84 Corns and callosities; E78.5 Hyperlipidemia, unspecified; I10 Essential (primary) hypertension; E66.9 Obesity, unspecified; F31.9 Bipolar disorder, unspecified; Z68.36 Body mass index [BMI] 36.0-36.9, adult; Z79.4 Long term (current) use of insulin; Z79.899 Other long term (current) drug therapy; Z89.411 Acquired absence of right great toe ==

== ENCOUNTER → 2021-03-20 | Outpatient (CLI) | payer OTHER | LOC: HYPER 08:20 | PROVIDERS: ATTEND Emergency Medicine | DX: T87.81 Dehiscence of amputation stump (principal); E11.621 Type 2 diabetes mellitus with foot ulcer; L97.522 Non-pressure chronic ulcer of other part of left foot with fat layer exposed; L97.512 Non-pressure chronic ulcer of other part of right foot with fat layer exposed; B95.62 Methicillin resistant Staphylococcus aureus infection as the cause of diseases classified elsewhere; E11.40 Type 2 diabetes mellitus with diabetic neuropathy, unspecified; L84 Corns and callosities; E78.5 Hyperlipidemia, unspecified; I10 Essential (primary) hypertension; E66.9 Obesity, unspecified; F31.9 Bipolar disorder, unspecified; Z68.36 Body mass index [BMI] 36.0-36.9, adult; Z79.4 Long term (current) use of insulin; Z98.890 Other specified postprocedural states; Z79.899 Other long term (current) drug therapy; Y83.5 Amputation of limb(s) as the cause of abnormal reaction of the patient, or of later complication, without mention of misadventure at the time of the procedure ==

== ENCOUNTER → 2021-05-17 | Outpatient (CLI) | payer OTHER | LOC: HYPER 11:03 | PROVIDERS: ATTEND Emergency Medicine | DX: T87.81 Dehiscence of amputation stump (principal); E11.621 Type 2 diabetes mellitus with foot ulcer; L97.522 Non-pressure chronic ulcer of other part of left foot with fat layer exposed; L97.512 Non-pressure chronic ulcer of other part of right foot with fat layer exposed; A49.02 Methicillin resistant Staphylococcus aureus infection, unspecified site; E11.40 Type 2 diabetes mellitus with diabetic neuropathy, unspecified; L84 Corns and callosities; E78.5 Hyperlipidemia, unspecified; I10 Essential (primary) hypertension; E66.01 Morbid (severe) obesity due to excess calories; F31.9 Bipolar disorder, unspecified; Z68.36 Body mass index [BMI] 36.0-36.9, adult; Z79.4 Long term (current) use of insulin; Y83.5 Amputation of limb(s) as the cause of abnormal reaction of the patient, or of later complication, without mention of misadventure at the time of the procedure ==

== ENCOUNTER → 2021-07-02 | Outpatient (CLI) | payer OTHER | LOC: HYPER 07:36 | PROVIDERS: ATTEND Emergency Medicine | DX: T87.81 Dehiscence of amputation stump (principal); E11.621 Type 2 diabetes mellitus with foot ulcer; L97.522 Non-pressure chronic ulcer of other part of left foot with fat layer exposed; L97.421 Non-pressure chronic ulcer of left heel and midfoot limited to breakdown of skin; L97.512 Non-pressure chronic ulcer of other part of right foot with fat layer exposed; B95.62 Methicillin resistant Staphylococcus aureus infection as the cause of diseases classified elsewhere; L84 Corns and callosities; E78.5 Hyperlipidemia, unspecified; I10 Essential (primary) hypertension; E66.9 Obesity, unspecified; F31.9 Bipolar disorder, unspecified; Z68.36 Body mass index [BMI] 36.0-36.9, adult; Z79.899 Other long term (current) drug therapy; Y83.5 Amputation of limb(s) as the cause of abnormal reaction of the patient, or of later complication, without mention of misadventure at the time of the procedure ==

== ENCOUNTER → 2021-07-19 | Outpatient (CLI) | payer OTHER | LOC: HYPER 15:21 | PROVIDERS: ATTEND Emergency Medicine | DX: E11.621 Type 2 diabetes mellitus with foot ulcer (principal); L97.522 Non-pressure chronic ulcer of other part of left foot with fat layer exposed; L97.512 Non-pressure chronic ulcer of other part of right foot with fat layer exposed; L84 Corns and callosities; A49.02 Methicillin resistant Staphylococcus aureus infection, unspecified site; E11.40 Type 2 diabetes mellitus with diabetic neuropathy, unspecified; E78.5 Hyperlipidemia, unspecified; E66.01 Morbid (severe) obesity due to excess calories; I10 Essential (primary) hypertension; F31.9 Bipolar disorder, unspecified; Z68.36 Body mass index [BMI] 36.0-36.9, adult; Z79.84 Long term (current) use of oral hypoglycemic drugs ==